=== PATIENT | female | born 1950 | race Caucasian/White ===

== ENCOUNTER → 2023-04-22 07:57 | Outpatient (CLI) | payer MEDICARE, SELFPAY ==
--- NOTE | 2023-04-22 08:01 | DI.RAD.S_ITS ---
PROCEDURE: XR LUMBAR SPINE MIN 4V INDICATIONS: LOW BACK PAIN TECHNIQUE: 5 views of the lumbar spine were acquired, including bilateral oblique views. COMPARISON: None. FINDINGS: Bones: 5 nonrib-bearing vertebrae are present. There is 16.8 degree levoscoliosis with the apex at L4. . No vertebral body compression fractures. No suspicious bony lesions. Degenerative disc disease, moderate at L1-L2, L2-L3 and L3-L4, mild at other levels. Multilevel facet arthropathy, severe at L2-L3, L3-L4 and L4-L5 on the right. Soft tissues: Overlying bowel gas pattern is normal. No suspicious soft tissue calcifications. Cholecystectomy. Oblique images: No pars defects. IMPRESSION: 1. 16.8 degree levoscoliosis with the apex at L4. 2. Multilevel spondylitis as described. Dictated by: Liliana Valdes M.D. on 04/22/2023 at 12:10 Approved by: Liliana Valdes M.D. on 04/22/2023 at 12:14
== END ==
PROVIDERS: Referring Provider Anesthesiology; Visit Provider Anesthesiology
DX: M46.86 Other specified inflammatory spondylopathies, lumbar region (principal); M47.26 Other spondylosis with radiculopathy, lumbar region; M41.25 Other idiopathic scoliosis, thoracolumbar region; M54.9 Dorsalgia, unspecified; M54.50 Low back pain, unspecified
CPT/HCPCS: 72110; 99214

== ENCOUNTER → 2023-04-30 11:14 | Outpatient (CLI) | payer MEDICARE, SELFPAY ==
--- NOTE | 2023-04-30 11:15 | DI.MRI.S_ITS ---
PROCEDURE: MR LUMBAR SPINE WO CON INDICATIONS: Lumbar radiculopathy, transitional anatomy TECHNIQUE: Noncontrast sagittal T1 spin echo and T2 fast echo, sagittal STIR, and T2 fast spin echo through the lumbar spine. In cases with scoliosis, additional coronal T2 fast spin echo may be performed. COMPARISON: [facility], CR, XR LUMBAR SPINE MIN 4V, 04/22/2023, 8:06. FINDINGS: Image quality: Excellent. Alignment and Curvature: Levocurvature centered at L4-L5, dextrocurvature centered at L1. 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 For the purposes of this report, axial imaging is described as having begun at T12 and extended inferiorly. Trace retrolisthesis of L3 on L4. Bone Marrow: Marrow is of normal overall signal. No acute vertebral body compression fractures. Spinal Cord: Conus medullaris terminates at the L2 level. Visualized cord demonstrates normal signal and size. Paraspinous Soft Tissues: No paravertebral masses. T12-L1: No canal stenosis or foraminal stenosis. L1-L2: No canal stenosis or foraminal stenosis. L2-L3: Minimal disc bulge. Minimal facet hypertrophy. No canal stenosis or foraminal stenosis. L3-L4: Trace retrolisthesis of L3 on L4. Facet hypertrophy. Moderate canal stenosis. Tglk-ic-sudpkmuo bilateral foraminal stenosis. L4-L5: Disc bulge. Prominent facet hypertrophy. Moderate canal stenosis. No significant foraminal stenosis. L5-S1: Disc bulge. Facet hypertrophy. No canal stenosis. Moderate right foraminal stenosis with flattening deformity on the exiting right L5 nerve root. IMPRESSION: 1. 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 If surgery is planned in this patient, careful correlation for correct surgical level is required. 2. Scoliotic curvature is described above. 3. Multilevel underlying facet arthropathy. 4. Using the numbering system described above, there is moderate canal stenosis at L3-L4 and L4-L5. 5. Multilevel foraminal narrowing as described above, including moderate right foraminal narrowing at L5-S1. Dictated by: Javid Collins M.D. on 04/30/2023 at 14:29 Approved by: Javid Collins M.D. on 04/30/2023 at 14:45
== END ==
PROVIDERS: Referring Provider Anesthesiology; Visit Provider Anesthesiology
DX: M47.27 Other spondylosis with radiculopathy, lumbosacral region; M48.061 Spinal stenosis, lumbar region without neurogenic claudication; M47.26 Other spondylosis with radiculopathy, lumbar region; M48.07 Spinal stenosis, lumbosacral region; M54.9 Dorsalgia, unspecified; M41.9 Scoliosis, unspecified
CPT/HCPCS: 72148

== ENCOUNTER → 2023-05-04 13:12 | Outpatient (CLI) | payer MEDICARE, SELFPAY ==
--- NOTE | 2023-05-04 13:14 | DI.RAD.S_ITS ---
PROCEDURE: XR KNEE RT 3V INDICATIONS: Right knee pain s/p fall TECHNIQUE: 3 views of the knee were acquired. COMPARISON: None. FINDINGS: Bones: No fractures or dislocations. No suspicious bony lesions. Mild tricompartmental osteoarthritis. Soft tissues: No joint effusion. No suspicious soft tissue calcifications. IMPRESSION: No fracture. No acute osseous lesion. If symptoms and/or clinical suspicion for pathology persists, further assessment with repeat radiographs (7-10 days) or advanced imaging (e.g. CT, MRI or bone scan) should be considered. Dictated by: Katarzyna Holloway MD, PhD on 05/04/2023 at 13:53 Approved by: Katarzyna Holloway MD, PhD on 05/04/2023 at 13:54
== END ==
PROVIDERS: Referring Provider Anesthesiology; Visit Provider Anesthesiology
DX: M25.561 Pain in right knee (principal)
CPT/HCPCS: 73562

== ENCOUNTER 2023-05-12 10:27 | Outpatient (CLI) | payer MEDICARE, SELFPAY ==
[2023-05-12] VITALS (10 sets, daily range): BP systolic 101–131; BP diastolic 52–69; PULSE 58–73; RESP 12–20; TEMP 36.5; O2SAT 96–100
--- NOTE | 2023-05-12 10:30 | DI.RAD.S_ITS ---
PROCEDURE: PAIN L/S TRANSFORAMINAL INJECT INDICATIONS: Right L4-5 and L5-S1 TFESI COMPARISON: [facility], MR, MR LUMBAR SPINE WO CON, 04/30/2023, 11:24. FINDINGS: Fluoroscopic spot filming was performed to verify placement of spinal needles on both sides at the L4-L5 and L5-S1 levels, as labeled on the films. Appropriate location of the needle tips was confirmed by injection of iodinated contrast. IMPRESSION: Intraprocedural examination demonstrating appropriate positions of the needles. Dictated by: Bob Hoffmann M.D. on 05/12/2023 at 15:09 Approved by: Bob Hoffmann M.D. on 05/12/2023 at 15:09
[2023-05-12] MEDS: MIDAZOLAM 2 MG/2 ML VIAL 1 MG IV ×2 (11:29→11:33)
[2023-05-12] MEDS: DEXAMETHASONE 10 MG/ML VIAL 20 MG INJ (11:31)
[2023-05-12] MEDS: iopamidoL 15 ML VIAL 3 ML INJ (11:31)
--- NOTE | 2023-05-12 12:24 | P.PCN_ITS ---
Date/Time/Diagnoses Date of procedure: 05/12/23 Time of procedure: 11:00 Procedure Notes Physician: Chip Ramon Total Fluoroscopy time (seconds): 37 Total sedation minutes: 15 Procedure in detail & Post-procedure care: Right L4-5 Transforaminal Epidural Steroid Injection Indications: Jodi is presenting for treatment of lumbar radiculopathy with low back and leg pain. Preoperative diagnosis: Lumbar radiculopathy Postoperative diagnosis: Same Focused Examination: Ax3 Mood and affect are normal Vital Signs: VSS ASA: 2 Consent: Following review of allergies and potential side effects/complications, including, but not necessarily limited to, infection, allergic reaction, local tissue breakdown, stroke, temporary or permanent nerve injury, paralysis, and possible , the patient indicated that they understood and agreed to proceed.? An informed consent document was signed by the patient, witnessed by a nurse and placed in the patient's chart.? Additionally, other treatment options including medications and physical therapy were reviewed with the patient. All questions were answered. Site was then marked. Anesthesia: After review of previous anesthetic history and IV conscious sedati on, the patient was deemed safe to proceed with today's procedure with IV conscious sedation. IV sedation was accomplished with midazolam 2 mg administered by the RN after order by Dr. Ramon. Sedation was titrated to patient comfort during the course of the procedure. Patient remained responsive to all verbal commands. Position: Prone Monitoring: NIBP, Pulse oximetry, 3 lead EKG Needle used: 22G 5 inch spinal needle Contrast: Isovue 300M Injectate: 10 mg Dexamethasone mixed with 1% lidocaine 1 ml and normal saline 1 mL Technique: The skin was prepped with chloraprep and draped in a sterile fashion. Time out was performed as per protocol. Oxygen applied via NC. Skin and subcutaneous structures of the needle entry site were infiltrated with 3mL of lidocaine 1%. Under fluoroscopic guidance, using an ipsilateral oblique view,?a 22 gauge 5 inch needle was advanced to the base of the right L4?pedicle.? The needle was advanced to the superio-posterior aspect of the neural foramen under lateral view.? Oblique and AP views were rechecked. No paresthesias noted by the patient during needle placement. In AP view and utilizing real-time digital subtraction fluoroscopy, 2 ml contrast was slowly injected. Epidural spread was observed without evidence for intravascular nor intrathecal uptake. Contrast spread was seen craniocaudally. The above injectate was then administered without paresthesia, and the needle was subsequently withdrawn. Skin and subcutaneous structures of the needle entry site were infiltrated with 3mL of lidocaine 1%. Under fluoroscopic guidance, using an ipsilateral oblique view,?a 22 gauge 5 inch needle was advanced to the base of the right L5? pedicle.? The needle was advanced to the superio-posterior aspect of the neural foramen under lateral view.? Oblique and AP views were rechecked. Paresthesia of the right lower extremity noted with injection at the L5-S1 level. Needle adjusted slightly however paresthesia continued. Injection at this level was aborted and needle was removed. A total of 0.25 cc of dexamethasone with lidocaine was injected at this level. Band-Aids applied to injection sites. EBL: less than 1 ml Complications: None Post Procedure: Patient was taken to the recovery and monitored. The patient was provided a Pain Log to continue to record the patient's response to the target- specific procedure prior to the patient's follow-up visit with the referring physician. Patient was stable upon discharge. Detailed post procedure instruc tions were provided. Patient was asked to call in the event of worsening pain, fever, weakness, numbness or bladder or bowel incontinence.
== END 2023-05-12 12:13 | disposition home or self-care (01) ==
LOC: RAD 10:28
PROVIDERS: Referring Provider Anesthesiology; Visit Provider Anesthesiology
DX: M54.16 Radiculopathy, lumbar region (principal)
CPT/HCPCS: 64483; 99152; J1100; J2250

== ENCOUNTER → 2023-06-15 14:47 | Outpatient (CLI) | payer MEDICARE, SELFPAY ==
[2023-06-15 17:54] LABS: Add Manual Diff / Slide Review NO; Basophils Absolute Auto 0 /uL (0-100); Basophils Percent Auto 0.7 % (0-2); Eosinophils Absolute Auto 200 /uL (0-450); Eosinophils Percent Auto 2.6 % (2-4); Hematocrit 37.4 % (36-46); Hemoglobin 12.9 g/dL (12.0-16.0); Lymphocytes Absolute Auto 1900 /uL (1100-4500); Lymphocytes Percent Auto 32.1 % (25-40); Mean Corpuscular HGB Conc 34.6 % (30-36); Mean Corpuscular Hemoglobin 32.3 PG (26-34); Mean Corpuscular Volume 93.3 fL (80-100); Monocytes Absolute Auto 800 /uL (0-900); Monocytes Percent Auto 12.6 % (3-14); Neutrophils Absolute Auto 3200 /uL (1500-7000); Platelet Count 205 X10^3/uL (150-400); Red Blood Cell Count 4.01 X10^6/uL (4.0-5.2); Red Cell Distribution Width 12.7 % (11.6-14.8); White Blood Cell Count 6.1 X10^3/uL (4.5-11.0)
[2023-06-15 18:05] LABS: Alanine Aminotransferase 21 IU/L (<35); Albumin 3.8 g/dL (3.5-5.0); Albumin Globulin Ratio 1.2 (1.0-2.8); Alkaline Phosphatase 67 U/L (38-126); Aspartate Aminotransferase 31 IU/L (14-36); BUN Creatinine Ratio 17.2 (6-22); Bilirubin Total 0.4 mg/dL (0.2-1.3); Blood Urea Nitrogen 16 mg/dL (7-17); Calcium 9.9 mg/dL (8.4-10.2); Carbon Dioxide 23 mmol/L (22-32); Chloride 106 mmol/L (98-107); Estimated Glomerular Filt Rate > 60 mL/min (>60); Globulin 3.1 g/dL (1.7-4.1); Glucose 100 mg/dL (80-110); HEMOLYSIS < 15 (0-50); Potassium 4.2 mmol/L (3.4-5.1); Sodium 139 mmol/L (137-145); Total Protein 6.9 g/dL (6.3-8.2)
[2023-06-15 18:35] LABS: TSH w/ Reflex to FT4 0.14 uIU/mL (0.47-4.68)
[2023-06-15 18:48] LABS: Erythrocyte Sedimentation Rate 15 MM/HR (0-20)
== END ==
PROVIDERS: PCP Student in an Organized Health Care Education/Training Program; Referring Provider Student in an Organized Health Care Education/Training Program; Visit Provider Student in an Organized Health Care Education/Training Program
DX: R19.7 Diarrhea, unspecified (principal); Z13.29 Encounter for screening for other suspected endocrine disorder
CPT/HCPCS: 36415; 80053; 84439; 84443; 85025; 85651

== ENCOUNTER → 2023-06-16 10:55 | Outpatient (CLI) | payer MEDICARE, SELFPAY ==
[2023-06-16 17:17] LABS: Occult Blood 1 Negative (Negative); Occult Blood 2 Negative (Negative); Occult Blood 3 Negative (Negative)
[2023-06-21 09:18] LABS: Calprotectin, Stool 16 ug/g (0-120)
== END ==
PROVIDERS: PCP Student in an Organized Health Care Education/Training Program; Referring Provider Student in an Organized Health Care Education/Training Program; Visit Provider Student in an Organized Health Care Education/Training Program
DX: R19.7 Diarrhea, unspecified (principal)
CPT/HCPCS: 82270; 83993

== ENCOUNTER → 2023-07-26 09:42 | Outpatient (CLI) | payer MEDICARE, SELFPAY ==
[2023-07-26 11:33] LABS: TSH w/ Reflex to FT4 0.18 uIU/mL (0.47-4.68)
[2023-07-26 20:55] LABS: Free T4, Direct Thyroxine 1.23 ng/dL (0.78-2.19)
== END ==
PROVIDERS: Family Provider Student in an Organized Health Care Education/Training Program; PCP Student in an Organized Health Care Education/Training Program; Referring Provider Student in an Organized Health Care Education/Training Program; Visit Provider Student in an Organized Health Care Education/Training Program
DX: E03.9 Hypothyroidism, unspecified (principal)
CPT/HCPCS: 36415; 84439; 84443

== ENCOUNTER → 2023-09-09 14:17 | Outpatient (CLI) | payer MEDICARE, SELFPAY ==
[2023-09-09 15:47] LABS: Thyroid Stimulating Hormone 0.081 uIU/mL (0.47-4.68)
== END ==
PROVIDERS: Family Provider Student in an Organized Health Care Education/Training Program; PCP Student in an Organized Health Care Education/Training Program; Referring Provider Student in an Organized Health Care Education/Training Program; Visit Provider Student in an Organized Health Care Education/Training Program
DX: E03.9 Hypothyroidism, unspecified (principal)
CPT/HCPCS: 36415; 84443

== ENCOUNTER → 2023-10-30 11:33 | Outpatient (CLI) | payer MEDICARE, SELFPAY ==
[2023-10-30 12:44] LABS: Add Manual Diff / Slide Review NO; Basophils Absolute Auto 100 /uL (0-100); Basophils Percent Auto 0.7 % (0-2); Eosinophils Absolute Auto 200 /uL (0-450); Eosinophils Percent Auto 3.1 % (2-4); Hematocrit 36.5 % (36-46); Hemoglobin 12.7 g/dL (12.0-16.0); Lymphocytes Absolute Auto 2200 /uL (1100-4500); Lymphocytes Percent Auto 29.8 % (25-40); Mean Corpuscular HGB Conc 34.9 % (30-36); Mean Corpuscular Hemoglobin 32.8 PG (26-34); Mean Corpuscular Volume 93.9 fL (80-100); Monocytes Absolute Auto 800 /uL (0-900); Monocytes Percent Auto 10.8 % (3-14); Neutrophils Absolute Auto 4100 /uL (1500-7000); Neutrophils Percent Auto 55.6 % (50-75); Platelet Count 190 X10^3/uL (150-400); Red Blood Cell Count 3.88 X10^6/uL (4.0-5.2); Red Cell Distribution Width 12.8 % (11.6-14.8); White Blood Cell Count 7.4 X10^3/uL (4.5-11.0)
[2023-10-30 13:06] LABS: Alanine Aminotransferase 18 IU/L (<35); Albumin 3.6 g/dL (3.5-5.0); Albumin Globulin Ratio 1.2 (1.0-2.8); Alkaline Phosphatase 87 U/L (38-126); Aspartate Aminotransferase 26 IU/L (14-36); BUN Creatinine Ratio 33.8 (6-22); Bilirubin Total 0.5 mg/dL (0.2-1.3); Blood Urea Nitrogen 27 mg/dL (7-17); Calcium 9.6 mg/dL (8.4-10.2); Carbon Dioxide 24 mmol/L (22-32); Chloride 110 mmol/L (98-107); Estimated Glomerular Filt Rate > 60 mL/min (>60); Glucose 86 mg/dL (80-110); HEMOLYSIS < 15 (0-50); Potassium 4.9 mmol/L (3.4-5.1); Sodium 138 mmol/L (137-145); Total Protein 6.6 g/dL (6.3-8.2)
== END ==
LOC: LAB 11:34
PROVIDERS: Family Provider Student in an Organized Health Care Education/Training Program; PCP Student in an Organized Health Care Education/Training Program; Referring Provider Family Medicine; Visit Provider Family Medicine
DX: E78.5 Hyperlipidemia, unspecified (principal); E03.9 Hypothyroidism, unspecified
CPT/HCPCS: 36415; 80053; 85025

== ENCOUNTER → 2023-11-23 15:46 | Outpatient (CLI) | payer MEDICARE, SELFPAY ==
--- NOTE | 2023-11-23 15:47 | DI.US.S_ITS ---
PROCEDURE: US THYROID INDICATIONS: HYPOTHYROIDISM TECHNIQUE: Real-time scanning was performed of the thyroid gland, with image documentation. COMPARISON: None. FINDINGS: Thyroid: Right lobe measures 4 3.9 x 0.8 x 1.1 cm. Left lobe measures 4.5 x 1.1 x 0.9 cm. Isthmus is 0.2 cm thick. Echotexture is mildly heterogeneous. No discrete thyroid nodule. Normal vascularity. IMPRESSION: Thyroid echotexture is mildly heterogeneous with no discrete nodule. Normal vascularity. Dictated by: Javier Rios M.D. on 11/24/2023 at 15:39 Approved by: Javier Rios M.D. on 11/24/2023 at 15:41
== END ==
PROVIDERS: Family Provider Student in an Organized Health Care Education/Training Program; PCP Student in an Organized Health Care Education/Training Program; Referring Provider Family Medicine; Visit Provider Family Medicine
DX: K31.7 Polyp of stomach and duodenum (principal); K44.9 Diaphragmatic hernia without obstruction or gangrene; E04.1 Nontoxic single thyroid nodule; K21.9 Gastro-esophageal reflux disease without esophagitis; E03.9 Hypothyroidism, unspecified
CPT/HCPCS: 76536

== ENCOUNTER 2023-12-16 14:30 | Outpatient (RCR) | payer MEDICARE, SELFPAY ==
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
--- NOTE | 2023-08-17 16:16 | PT.OPPOC ---
Physical, Occupational & Speech Therapy At [facility] Current Diagnoses Other chronic pain (08/17/23) Low back pain, unspecified (08/17/23) Visit Care Team Role Provider Type Annabelle Mancini MD Family Provider Physician Primary Care Provider Specialty: Family Practice Obstetrics Address: [address] [place], [address] Email: [email or web address] Chip Ramon MD Attending Provider Physician Referring Provider Specialty: Anesthesiology Interventional Radiology Pain Management Address: [address] [place], [address] Email: [email or web address] Plan Of Care PT-OP-T Assessment and Plan Start: 08/17/23 13:01 Freq: Status: Active Protocol: Document 08/17/23 13:01 NM (Rec: 08/17/23 13:53 NM [id number]) Physical Therapy Assessment Rehab Potential Rehabilitation Potential Fair Evaluation Complexity Number of Personal Factors/Comorbidities 3 or More Number of Body Systems Impaired 1-2 Clinical Presentation at Evaluation Stable Impairments Impairments Activity Tolerance,Balance, Coordination,Functional Activities,Functional Mobility ,Gait,Pain,Posture,ROM, Sensation,Soft Tissue Mobility ,Strength Goals Six Impairment ROM Impairment Fwd trunk flex test 9 from floor Casework Specialist Goal (LTG) Pt will improve fwd trunk flex to less than 9 from floor in order to demonstrate improved trunk flexion with activity. LTG Duration 10 weeks Five Impairment strength Impairment trunk flex/ext strength 3/5, lateral flex/rotation strength 4-/5 Casework Specialist Goal (LTG) Pt will improve global trunk strength by at least 1 grade in order to demonstrate increased strength required for ADLs. LTG Duration 10 weeks Four Impairment strength Casework Specialist Goal (LTG) Pt will improve BLE global hip /knee strength to at least 4/5 in order to increase strength for activity tolerance. LTG Duration 10 weeks Three Impairment strength Impairment 5x STS 23.63 seconds Short Term Goal (STG) Pt will decrease 5x STS time to less than 20 seconds to demonstrate increased BLE strength and activity tolerance. Casework Specialist Goal (LTG) Pt will decrease 5x STS time to less than 17 seconds to demonstrate increased BLE strength and activity tolerance. LTG Duration 10 weeks Two Impairment balance Impairment Tinetti 17/28 Short Term Goal (STG) Pt will improve Tinetti score to at least 20/28 in order to demonstrate improved balance during gait and ADLs. STG Duration 5 weeks Fpc Goal (LTG) Pt will improve Tinetti score to at least 24/28 in order to demonstrate improved balance during gait and ADLs. LTG Duration 10 weeks One Impairment function Impairment Oswestry 28/50 Casework Specialist Goal (LTG) Pt will decrease Oswestry score by at least 12 points (1 MCID) in order to demonstrate improved ADL and activity tolerance. LTG Duration 10 weeks Assessment Summary Assessment Pt is a 73 y.o. female presenting with low back pain with R radicular symptoms. Radicular symptoms wrap from posterior glute to anterior thigh and end at knee. Pt has decreased trunk global ROM and strength, particularly with flexion. Resisted muscle testing is painful for rotation and lateral flexion. Also demonstrates decreased B hip and knee strength. Pt has hx of L scoliosis at L4, which likely plays a large role in her pain. Pt is a fall risk with a Tinetti score of 17/28, which coincides with her reports of changes in gait and balance. She also has positive neural tension tests for sciatic and femoral nerves , along with Bauman/Quadrant compression and B FADIR tests. Tender to palpation at paraspinals, L4-S1 and B SI joints. She has very limited activity tolerance, which affects her ability to perform ADLs. Pt would benefit from skilled PT for BLE and trunk strengthening, mobility, gait and balance training in order to decrease fall risk, decrease pain symptoms, and improve activity tolerance. Physical Therapy Plan Frequency and Duration Frequency of Treatment 2x/Week Duration of treatment (weeks) 10 Plan of Care Start Date 08/17/23 Plan of Care End Date 10/29/23 Therapeutic Interventions Therapeutic Interventions Balance Training,Coordination Training,Gait Training,Home Exercise Program,Joint Mobilizations,Manual Therapy, Neuromuscular Re-education, Orthotic/Prosthetic Management ,Patient/Caregiver Education, Self-Care/Home Management, Sensory Integration,Soft Tissue Mobilization,Taping, Therapeutic Activities, Therapeutic Exercises Modalities Biofeedback,Cold Pack/Ice Massage,Electric Stimulation, Hot Packs,Infrared Therapy, Traction- Mechanical, Ultrasound,Vasopneumatic Devices Next Visit Focus/Plan Next Note Type Treatment Note Next Visit Plan flexion biased strengthening, TA activation. LTR, BTFO, distraction + traction. Hip abd and ext strengthening table exercises; trial femoral n and sciatic n glides Pain neuroscience education Plan of Care Dates Plan of Care Start Date 08/17/23 Plan of Care End Date 10/29/23 Electronically Signed by: Josiane Landeros, PT 08/25/23 [id number] If you are in agreement with this Plan of Care, please return a signed and dated copy. I have reviewed this Plan of Care and certify that the skilled therapy services above are required to meet the patient?s needs. Physician Signature Date Printed Name and Credentials Clinical Instructor Signature Printed Name and Credentials
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
--- NOTE | 2023-10-29 16:46 | PT.OPPOC ---
Physical, Occupational & Speech Therapy At [facility] Current Diagnoses Other chronic pain (10/29/23) Low back pain, unspecified (10/29/23) Visit Care Team Role Provider Type Johnny Rico MD Other Providers Physician Specialty: Family Practice Address: [address] [place] [address] Email: [email or web address] Annabelle Mancini MD Family Provider Physician Primary Care Provider Specialty: Family Practice Obstetrics Address: [address] [place] [address], [id number] Email: [email or web address] Chip Ramon MD Attending Provider Physician Referring Provider Specialty: Anesthesiology Interventional Radiology Pain Management Address: [address] [place] [address], [id number] Email: [email or web address] Plan Of Care PT-OP-T Assessment and Plan Start: 08/17/23 13:01 Freq: Status: Active Protocol: Document 10/29/23 09:01 NM (Rec: 10/29/23 09:46 NM [id number]) Physical Therapy Assessment Goals Six Impairment ROM Impairment Fwd trunk flex test 9 from floor Snf Goal (LTG) Pt will improve fwd trunk flex to less than 9 from floor in order to demonstrate improved trunk flexion with activity. 10/19/23: added trunk flexion / c 65cm tball home carryover into progression ROM. 10/29/23: 50% flexion AROM LTG Duration 10 weeks progression 10/19/23 Five Impairment strength Impairment trunk flex/ext strength 3/5, lateral flex/rotation strength 4-/5 Snf Goal (LTG) Pt will improve global trunk strength by at least 1 grade in order to demonstrate increased strength required for ADLs. 10/01/23: added TA hooklying, sidelying, STS, juanita stretch . 10/19/23: added LTR tball and seated lumbar flexion tball with pain reduction. 10/29/23: 4-/5 against resistance in sitting, cued for core stabilization LTG Duration 10 weeks progressing 10/19/23 Four Impairment strength Snf Goal (LTG) Pt will improve BLE global hip /knee strength to at least 4/5 in order to increase strength for activity tolerance. 10/29/23-MET: 4/5 MMT global BLE strength LTG Duration 10 weeks MET Three Impairment strength Impairment 5x STS 23.63 seconds Short Term Goal (STG) Pt will decrease 5x STS time to less than 20 seconds to demonstrate increased BLE strength and activity tolerance. 10/07/23 Pt completes 10 reps STS, not timed today, no UEs support with good TAfac. 10/21/23: 5TSTS in 40 secs with use of hands and no increase in back pain. Mvmt limited by RLBP/hip pain, not by LE strength. 10/29/23-NOT MET: 33.6 seconds, with hand use; no back pain reported during sit to stand but reports pain after finishing 5x STS STG Duration 5 weeks Snf Goal (LTG) Pt will decrease 5x STS time to less than 17 seconds to demonstrate increased BLE strength and activity tolerance. 10/29/23-NOT MET: 33.6 seconds, with hand use; no back pain reported during sit to stand but reports pain after finishing 5x STS LTG Duration 10 weeks Two Impairment balance Impairment Tinetti Short Term Goal (STG) Pt will improve Tinetti score to at least 20/28 in order to demonstrate improved balance during gait and ADLs. STG Duration 5 weeks Super[employer] Goal (LTG) Pt will improve Tinetti score to at least 24/28 in order to demonstrate improved balance during gait and ADLs. 10/29/23: 24 LTG Duration 10 weeks MET One Impairment function Impairment Oswestry Super[employer] Goal (LTG) Pt will decrease Oswestry score by at least 12 points (1 MCID) in order to demonstrate improved ADL and activity tolerance. 10/29/23-NOT MET: LTG Duration 10 weeks Progress Towards Goals Progress Towards Goals Progressing Toward Goals,Slow Progress due to Activity Tolerance,Goals Met Assessment Summary Assessment Pt has been seen 8 times since IE in August 2023 for low back pain. Pt reports improvements in BLE strength since beginning PT. Pt's MMT scores demonstrate improvement , no 4/5 MMT. Pt continues to make progressions with 5x STS, but is below age/gender norms (12.6 sec); pt demos improvements in mechanics rather than speed. She is progressing with trunk ROM, but her pain is easily flared which limits progression. Pt has met Tinetti goals, indicating improved balance and decreased fall risk. She continues to have limitations in ability to participate in ADLs/IADLs without pain. Pt would benefit from further skilled PT to body mechanics training, pain neuroscience education, and to improve trunk stabilization in order to improve QOL and activity tolerance. Physical Therapy Plan Frequency and Duration Frequency of Treatment 2x/Week Duration of treatment (weeks) 10 Plan of Care Start Date 10/29/23 Plan of Care End Date 01/07/24 Therapeutic Interventions Therapeutic Interventions Balance Training,Coordination Training,Gait Training,Home Exercise Program,Joint Mobilizations,Manual Therapy, Neuromuscular Re-education, Orthotic/Prosthetic Management ,Patient/Caregiver Education, Self-Care/Home Management, Sensory Integration,Soft Tissue Mobilization,Taping, Therapeutic Activities, Therapeutic Exercises Modalities Biofeedback,Cold Pack/Ice Massage,Electric Stimulation, Hot Packs,Infrared Therapy, Traction- Mechanical, Ultrasound,Vasopneumatic Devices Next Visit Focus/Plan Next Note Type Treatment Note Next Visit Plan Next: Use L/S traction when needed to keep R LBP down. Assess tolerance before adding LTR w/TA. Might try adding Shuttle Recovery or Knee Ext/ Flex PRE strengthening if no increase in RLBP/hip pain. Assess tinetti and progress towards functional squat (goal #4), bodymechanics to return to house activities. POC: Try strengthen convex side of curves, 90/90 distraction + traction for pain and if sup tolerated, try BKFO (might try also in sitting). POC: progress Core stab/TA tightening and response ex/ training. Scoliosis ex's. Cont: Flexion biased strengthening, TA activation. Hip abd and ext strengthening table exercises; if tolerated : Obturator stretch to decrease nerve symptoms. Pain neuroscience education Plan of Care Dates Plan of Care Start Date 10/29/23 Plan of Care End Date 01/07/24 Electronically Signed by: Josiane Landeros, PT 10/29/23 2530 If you are in agreement with this Plan of Care, please return a signed and dated copy. I have reviewed this Plan of Care and certify that the skilled therapy services above are required to meet the patient?s needs. Physician Signature Date Printed Name and Credentials Clinical Instructor Signature Printed Name and Credentials
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
== END 2023-12-22 12:24 | disposition home or self-care (01) ==
LOC: PHYS 14:30
PROVIDERS: Family Provider Student in an Organized Health Care Education/Training Program; PCP Student in an Organized Health Care Education/Training Program; Referring Provider Anesthesiology; Visit Provider Anesthesiology
DX: M54.50 Low back pain, unspecified (principal); G89.29 Other chronic pain
CPT/HCPCS: 97110; 97140; 97162; 97530; 97535

== ENCOUNTER → 2023-12-29 08:40 | Outpatient (CLI) | payer MEDICARE, SELFPAY | PROVIDERS: Family Provider Student in an Organized Health Care Education/Training Program; PCP Student in an Organized Health Care Education/Training Program; Visit Provider Physician Assistant Surgical | DX: R30.0 Dysuria (principal) | CPT/HCPCS: 87077; 87086; 87186 ==

== ENCOUNTER → 2024-01-15 20:10 | Outpatient (ROUT) | payer MEDICARE, SELFPAY | PROVIDERS: Family Provider Student in an Organized Health Care Education/Training Program; PCP Student in an Organized Health Care Education/Training Program; Visit Provider Nurse Practitioner Family | DX: R30.0 Dysuria (principal) | CPT/HCPCS: 87086 ==

== ENCOUNTER → 2024-01-20 09:00 | Outpatient (CLI) | payer MEDICARE, SELFPAY ==
[2024-01-20 10:52] LABS: Appearance Urine UA CLEAR; Bilirubin Urine UA NEGATIVE (NEGATIVE); Color Urine UA YELLOW; Glucose Urine UA NEGATIVE (Negative); Ketones Urine UA NEGATIVE (NEGATIVE); Leukocyte Esterase Urine UA NEGATIVE (NEGATIVE); Nitrite Urine UA NEGATIVE (Negative); Occult Blood Urine UA NEGATIVE (Negative); Protein Urine UA NEGATIVE (Negative); Specific Gravity Urine UA 1.015 (1.000-1.035); Urobilinogen Urine UA 0.2 E.U./dL (0.2)
[2024-01-20 11:16] LABS: Bacteria Urine None Seen; Culture Indicated Urine Cult Not Indicated; RBC Urine None Seen (0-5/HPF); Squamous Epithelial Cell Urine 1-5 /HPF (0-5/HPF); Urine Volume 10mL (spun); WBC Urine 0-1/HPF (0-5/HPF)
== END ==
PROVIDERS: Family Provider Student in an Organized Health Care Education/Training Program; PCP Student in an Organized Health Care Education/Training Program; Visit Provider Student in an Organized Health Care Education/Training Program
DX: N39.0 Urinary tract infection, site not specified (principal)
CPT/HCPCS: 81001; 87086

== ENCOUNTER → 2024-04-13 14:45 | Outpatient (CLI) | payer MEDICARE, SELFPAY ==
[2024-04-13 17:04] LABS: Appearance Urine UA CLEAR; Bilirubin Urine UA NEGATIVE (NEGATIVE); Color Urine UA YELLOW; Glucose Urine UA NEGATIVE (Negative); Ketones Urine UA NEGATIVE (NEGATIVE); Leukocyte Esterase Urine UA NEGATIVE (NEGATIVE); Nitrite Urine UA NEGATIVE (Negative); Occult Blood Urine UA NEGATIVE (Negative); Protein Urine UA NEGATIVE (Negative); Urobilinogen Urine UA 0.2 E.U./dL (0.2)
[2024-04-13 17:11] LABS: Bacteria Urine Occasional (0-1); Calcium Oxalate Crystals Urine Moderate; RBC Urine 0-1/HPF (0-5/HPF); Squamous Epithelial Cell Urine 0-1 /HPF (0-5/HPF); Urine Volume 10mL (spun); WBC Urine 1-5/HPF (0-5/HPF)
[2024-04-13 17:12] LABS: Culture Indicated Urine Cult Not Indicated
== END ==
PROVIDERS: Family Provider Student in an Organized Health Care Education/Training Program; PCP Student in an Organized Health Care Education/Training Program; Visit Provider Student in an Organized Health Care Education/Training Program
DX: R32 Unspecified urinary incontinence (principal)
CPT/HCPCS: 81001

== ENCOUNTER → 2024-05-08 10:33 | Outpatient (CLI) | payer MEDICARE, SELFPAY ==
--- NOTE | 2024-05-08 10:34 | DI.US.S_ITS ---
PROCEDURE: US PERIPH VENOUS LOW EXTREM RT INDICATIONS: POSTERIOR KNEE PAIN TECHNIQUE: Real-time imaging, as well as color and pulse Doppler interrogation, were performed of the lower extremity deep veins from the inguinal ligament to the popliteal fossa, with documentation of the visualized calf veins. COMPARISON: None. FINDINGS: The common femoral, femoral, popliteal, and the visualized calf veins are normally compressible, and free of intraluminal thrombus. Color and pulse Doppler demonstrate normal phasic intraluminal flow. There is normal augmentation response to distal compression maneuver. A Montano's cyst is noted measuring 5.2 x 1.8 x 3.2 cm, without abnormal vascularity. IMPRESSION: No findings of lower extremity deep venous thrombosis. Montano's cyst noted. Dictated by: Bob Hoffmann M.D. on 05/08/2024 at 10:02 Approved by: Bob Hoffmann M.D. on 05/08/2024 at 10:03
== END ==
PROVIDERS: Family Provider Student in an Organized Health Care Education/Training Program; PCP Student in an Organized Health Care Education/Training Program; Referring Provider Family Medicine; Visit Provider Family Medicine
DX: M79.604 Pain in right leg (principal); M79.89 Other specified soft tissue disorders; M71.21 Synovial cyst of popliteal space [Baker], right knee
CPT/HCPCS: 93971

== ENCOUNTER → 2024-10-16 11:12 | Outpatient (CLI) | payer MEDICARE, SELFPAY ==
--- NOTE | 2024-10-16 11:13 | DI.RAD.S_ITS ---
PROCEDURE: XR HIP W PEL IF DONE LT 2V INDICATIONS: left hip pain TECHNIQUE: AP pelvis and frogleg left hip views were acquired. COMPARISON: None. FINDINGS: Bones: There are no osseous abnormalities. SI and hip joints: Moderate right hip and mild left hip and bilateral SI degeneration noted. Moderate L5-S1 degenerative disc and right facet disease. Soft tissues: No soft tissue swelling, calcification or mass. IMPRESSION: Degeneration Dictated by: Saturnino Velasquez M.D. on 10/17/2024 at 9:23 Approved by: Saturnino Velasquez M.D. on 10/17/2024 at 9:24
== END ==
PROVIDERS: Family Provider Student in an Organized Health Care Education/Training Program; PCP Student in an Organized Health Care Education/Training Program; Referring Provider Family Medicine; Visit Provider Family Medicine
DX: M16.0 Bilateral primary osteoarthritis of hip (principal); M47.817 Spondylosis without myelopathy or radiculopathy, lumbosacral region; M47.818 Spondylosis without myelopathy or radiculopathy, sacral and sacrococcygeal region; M25.552 Pain in left hip; M51.379 Other intervertebral disc degeneration, lumbosacral region without mention of lumbar back pain or lower extremity pain
CPT/HCPCS: 73502

== ENCOUNTER → 2024-10-20 15:00 | Outpatient (CLI) | payer MEDICARE, SELFPAY ==
--- NOTE | 2024-10-20 15:02 | DI.MRI.S_ITS ---
PROCEDURE: MR LUMBAR SPINE WO CON INDICATIONS: Incontinence TECHNIQUE: Noncontrast sagittal T1 spin echo and T2 fast echo, sagittal STIR, and T2 fast spin echo through the lumbar spine. In cases with scoliosis, additional coronal T2 fast spin echo may be performed. COMPARISON: [facility], MR, MR LUMBAR SPINE WO CON, 04/30/2023, 11:24. FINDINGS: Image quality: Excellent. Alignment and Curvature: There is rwne-os-ojlkubrk dextroscoliosis of thoracolumbar spine with apex at L2 level and mild compensatory levoscoliosis of lower lumbar spine centered at L4-5 level not significantly changed from previous study. Bone Marrow: There is no marrow edema. No acute vertebral body compression fracture or significant spondylolisthesis. Spinal Cord: Conus medullaris terminates at the L2 level. Visualized cord demonstrates normal signal and size. Paraspinous Soft Tissues: No paravertebral masses. T12-L1: Disc desiccation. No significant disc bulge, canal stenosis or neural foraminal narrowing. L1-L2: Disc desiccation. Mild diffuse disc bulge and bilateral facet arthrosis. No significant central canal stenosis. Mild left-sided neural foraminal narrowing is seen. L2-L3: There is disc desiccation. Diffuse disc bulge and bilateral facet arthrosis with hypertrophy of ligamentum flavum causing mild central canal stenosis and mild left-sided neural foraminal narrowing. L3-L4: Disc desiccation. Diffuse disc bulge and bilateral facet arthrosis with hypertrophy of ligamentum flavum causing moderate central canal stenosis, severe right-sided neural foraminal narrowing and nbux-pt-ubtccjbi left-sided neural foraminal narrowing. Bulging disc likely contacting bilateral L2 nerve roots. L4-L5: Diffuse disc bulge and bilateral facet arthrosis with hypertrophy of ligamentum flavum with mild central canal stenosis and fuko-on-gegqldds bilateral neural foraminal narrowing. Bulging disc likely contacting right L4 nerve root. L5-S1: Loss of disc height and disc desiccation. Broad-based disc bulge and bilateral facet arthrosis with etgy-zo-lkscwpnd central canal stenosis, moderate right-sided neural foraminal narrowing and mild left-sided neural foraminal narrowing. Bulging disc is seen contacting right L5 nerve root. IMPRESSION: 1. Scoliosis of lower thoracic and lumbar spine as above, not significantly changed from prior study. No marrow edema. No acute compression fracture or significant spondylolisthesis. 2. Spondylitic changes throughout lumbar spine causing various degrees of central canal stenosis and bilateral neural foraminal narrowing slightly progressed compared to 2022 study. 3. No gross paraspinous soft tissue abnormalities. Dictated by: Slim España M.D. on 10/20/2024 at 16:32 Approved by: Slim España M.D. on 10/20/2024 at 16:55
--- NOTE | 2024-10-20 15:02 | DI.MRI.S_ITS ---
PROCEDURE: MR HIP LT WO CON INDICATIONS: Incontinence TECHNIQUE: Noncontrast coronal T1 spin echo and STIR through the bony pelvis. Coronal and axial T2 fast spin echo with fat saturation, sagittal T1 spin echo, and oblique axial T2 fast spin echo with fat saturation through the hip. COMPARISON: [facility], CR, XR HIP W PEL IF DONE LT 2V, 10/16/2024, 11:10. FINDINGS: Image quality: Excellent. Bones and joints: Tndh-kz-pfyxwpkd bilateral hip joint osteoarthritic changes are seen with joint space narrowing, subchondral sclerosis and subcortical cystic changes worse on the right side. No intraosseous lesions or fractures. No avascular necrosis of the femoral heads. Degenerative disc disease in visualized lower lumbar spine is seen. Tendons and ligaments: Distal left gluteus medius and minimus tendinosis is seen at their insertions on greater trochanter. Small amount of fluid within left trochanteric bursa is seen. The nearby proximal iliotibial band also appears intact. The iliopsoas tendon appears intact, without adjacent bursal fluid collections or evidence for impingement syndrome. Mild tendinosis involving left hamstring tendon origins at ischial tuberosity. Labrum and cartilage: Diffuse thinning of articulating cartilage. There is fraying of superior anterior left acetabular labrum with T2 hyperintense signal suggestive of left acetabular labral tear. Soft tissues: Visualized muscles demonstrate normal bulk and internal signal. Quadratus femoris muscle demonstrates no internal edema to suggest ischiofemoral impingement. The proximal sciatic neurovascular bundle appears normal adjacent to the hamstring tendons. No free pelvic fluid. Bladder wall thickness is normal. Genitourinary structures and bowel loops appear normal where visualized. IMPRESSION: 1. Right worse than left bilateral nbxs-zs-zbxdwbho hip joint osteoarthritis. No fracture or dislocation. No evidence of avascular necrosis. Degenerative disc disease in visualized lower lumbar spine. 2. Mild distal left gluteus medius and minimus tendinosis. Small amount of fluid within left trochanteric bursa, concerning for low-grade bursitis. Tendinosis also seen involving left hamstring tendon origins at ischial tuberosity. No other muscle or tendon signal abnormalities are seen. 3. Finding is suggestive of superior anterior left acetabular labral tear. Dictated by: Slim España M.D. on 10/20/2024 at 16:26 Approved by: Slim España M.D. on 10/20/2024 at 16:29
--- NOTE | 2024-10-20 15:02 | DI.MRI.S_ITS ---
PROCEDURE: MR HIP RT WO CON INDICATIONS: Incontinence TECHNIQUE: Noncontrast coronal T1 spin echo and STIR through the bony pelvis. Coronal and axial T2 fast spin echo with fat saturation, sagittal T1 spin echo, and oblique axial T2 fast spin echo with fat saturation through the hip. COMPARISON: None. FINDINGS: Image quality: Excellent. Bones and joints: Mfhf-ts-lnxuewuy bilateral hip joint osteoarthritic changes are seen with superior joint space narrowing, subchondral sclerosis and small marginal osteophyte formation. Finding is worse on the right side. No intraosseous lesions or fractures. No avascular necrosis of the femoral heads. degenerative disc disease in visualized lower lumbar spine is seen. Tendons and ligaments: Distal right gluteus medius and minimus tendinosis at their insertions on greater trochanter is seen with trace amount of fluid within right trochanteric bursa. The nearby proximal iliotibial band also appears intact. The iliopsoas tendon appears intact, without adjacent bursal fluid collections or evidence for impingement syndrome. Mild tendinosis involving right hamstring tendon origins at ischial tuberosity is seen with thickening of the tendon. Labrum and cartilage: Diffuse thinning of articulating cartilage over right femoral head. Fraying of superior anterior acetabular labrum with T2 hyperintense signal is seen consistent with superior anterior right acetabular labral tear. Soft tissues: Visualized muscles demonstrate normal bulk and internal signal. Quadratus femoris muscle demonstrates no internal edema to suggest ischiofemoral impingement. The proximal sciatic neurovascular bundle appears normal adjacent to the hamstring tendons. No free pelvic fluid. Bladder wall thickness is normal. Genitourinary structures and bowel loops appear normal where visualized. IMPRESSION: 1. Right worse than left bilateral hip joint osteoarthritis. No marrow edema. No evidence of avascular necrosis of femoral head. No acute pelvic or hip fracture. No dislocation. 2. Distal right gluteus medius and minimus tendinosis with small amount of fluid distending right trochanteric bursa concerning for low-grade bursitis. Mild tendinosis involving right hamstring tendon origins at ischial tuberosity. No other muscle or tendon signal abnormalities. No soft tissue mass or drainable fluid collection. 3. Finding is suggestive of superior anterior right acetabular labral tear. Dictated by: Slim España M.D. on 10/20/2024 at 16:29 Approved by: Slim España M.D. on 10/20/2024 at 16:31
== END ==
PROVIDERS: Family Provider Student in an Organized Health Care Education/Training Program; PCP Student in an Organized Health Care Education/Training Program; Referring Provider Student in an Organized Health Care Education/Training Program; Visit Provider Student in an Organized Health Care Education/Training Program
DX: M16.0 Bilateral primary osteoarthritis of hip (principal); M47.816 Spondylosis without myelopathy or radiculopathy, lumbar region; M47.817 Spondylosis without myelopathy or radiculopathy, lumbosacral region; M51.360 Other intervertebral disc degeneration, lumbar region with discogenic back pain only; M48.061 Spinal stenosis, lumbar region without neurogenic claudication; M48.07 Spinal stenosis, lumbosacral region; M41.9 Scoliosis, unspecified; M67.952 Unspecified disorder of synovium and tendon, left thigh; M67.951 Unspecified disorder of synovium and tendon, right thigh; R32 Unspecified urinary incontinence; M25.559 Pain in unspecified hip
CPT/HCPCS: 72148; 73721

== ENCOUNTER → 2024-12-08 12:30 | Outpatient (CLI) | payer MEDICARE, SELFPAY ==
[2024-12-09 09:10] LABS: Rubeola Measles IgG > 300.0 AU/mL (Immune >16.4)
[2024-12-09 10:12] LABS: Mumps Virus IgG Antibody <9.0 AU/mL (Immune >10.9)
[2024-12-09 15:14] LABS: Rubella Antibody IgG 40.2 IU/mL (>15)
== END ==
PROVIDERS: Family Provider Student in an Organized Health Care Education/Training Program; PCP Student in an Organized Health Care Education/Training Program; Referring Provider Family Medicine; Visit Provider Family Medicine
DX: Z01.84 Encounter for antibody response examination (principal)
CPT/HCPCS: 36415; 86735; 86762; 86765

== ENCOUNTER → 2025-05-30 08:55 | Outpatient (CLI) | payer MEDICARE, SELFPAY ==
[2025-05-30 09:39] LABS: Add Manual Diff / Slide Review NO; Hematocrit 37.2 % (36-46); Hemoglobin 12.9 g/dL (12.0-16.0); Lymphocytes Absolute Auto 1900 /uL (1100-4500); Mean Corpuscular HGB Conc 34.6 % (30-36); Mean Corpuscular Hemoglobin 32.7 PG (26-34); Mean Corpuscular Volume 94.6 fL (80-100); Platelet Count 198 X10^3/uL (150-400)
--- NOTE | 2025-05-30 09:40 | EKG_ITS ---
[address] [address] Test Date: 2025-05-30 Pat Name: Jodi Franco Department: [facility] Room: Gender: Female Account Classification Clerk: KAYLEEN : 1950 Requested By: Order Number: [id number] Reading MD: Saturnino Grullon MD Measurements Intervals [place] Rate: 54 P: 65 MA: 174 QRS: 5 QRSD: 88 T: 30 QT: 408 QTc: 386 Interpretive Statements Sinus bradycardia Electronically Signed On 05-31-2025 7:36:11 PDT by Saturnino Grullon MD
[2025-05-30 09:53] LABS: Hemoglobin A1C% w Est Avg Glu 5.0 % (4.0-6.0)
[2025-05-30 09:59] LABS: Albumin 3.9 g/dL (3.5-5.0); Blood Urea Nitrogen 16 mg/dL (7-17); Calcium 9.7 mg/dL (8.4-10.2); Carbon Dioxide 22 mmol/L (22-32); Chloride 107 mmol/L (98-107); Estimated Glomerular Filt Rate > 60 mL/min (>60); Glucose 87 mg/dL (70-99); HEMOLYSIS < 15 (0-50); Potassium 4.2 mmol/L (3.4-5.1); Sodium 137 mmol/L (137-145)
[2025-05-30 10:06] LABS: Prealbumin 24.0 mg/dL (17.6-36.0)
[2025-05-30 10:15] LABS: Vitamin D 25 Hydroxy (D3) 64.1 ng/mL (30.0-100.0)
== END ==
PROVIDERS: PCP Student in an Organized Health Care Education/Training Program; Referring Provider Orthopaedic Surgery Adult Reconstructive Orthopaedic Surgery; Visit Provider Orthopaedic Surgery Adult Reconstructive Orthopaedic Surgery
DX: Z01.818 Encounter for other preprocedural examination (principal); R73.9 Hyperglycemia, unspecified; E55.9 Vitamin D deficiency, unspecified; M16.11 Unilateral primary osteoarthritis, right hip
CPT/HCPCS: 36415; 80048; 82040; 82306; 83036; 84134; 85025; 93005

== ENCOUNTER → 2025-06-07 13:35 | Outpatient (CLI) | payer MEDICARE, SELFPAY ==
--- NOTE | 2025-06-07 13:36 | DI.RAD.S_ITS ---
PROCEDURE: XR DEXA AXIAL SKELETON
== END ==
LOC: RAD 13:36
PROVIDERS: PCP Student in an Organized Health Care Education/Training Program; Referring Provider Orthopaedic Surgery Adult Reconstructive Orthopaedic Surgery; Visit Provider Orthopaedic Surgery Adult Reconstructive Orthopaedic Surgery
DX: M85.89 Other specified disorders of bone density and structure, multiple sites (principal); M16.11 Unilateral primary osteoarthritis, right hip; M25.552 Pain in left hip; M25.551 Pain in right hip
CPT/HCPCS: 77080

== ENCOUNTER → 2025-06-28 15:12 | Outpatient (CLI) | payer MEDICARE, SELFPAY ==
--- NOTE | 2025-06-28 15:13 | DI.MG.S_ITS ---
MM screening mammo BI: 06/28/2025. BI-RADS: 1 CLINICAL: 75-year old female for bilateral screening mammogram. Tyrer-Cuzick lifetime risk of 5.8%. No personal or first-degree family history of breast cancer. Current reported family history of breast cancer: maternal grandmother. PRIOR EXAMS: 10/30/21, 06/16/19. MAMMOGRAPHY TECHNIQUE: 2D and 3D (tomosynthesis) digital mammographic views obtained, with additional images as needed for full coverage. Current study was also evaluated with a Computer Aided Detection (CAD) system. DENSITY C. The breasts are heterogeneously dense, which may obscure small masses. MAMMOGRAPHY FINDINGS Bilateral: No suspicious mass, asymmetry, microcalcification, or other abnormality seen. IMPRESSION: * No evidence of malignancy. RECOMMENDATIONS Bilateral * Annual screening mammography. OVERALL ASSESSMENT CATEGORY BI-RADS-1: Negative. The [employer] recommends annual screening mammography beginning at age 40 for women with average risk of breast cancer. ELECTRONICALLY SIGNED: Jonas Carvajal M.D. on 06/29/2025 at 07:08:18 AM PT Interpreting Station ID: [id number]
== END ==
PROVIDERS: PCP Student in an Organized Health Care Education/Training Program; Referring Provider Student in an Organized Health Care Education/Training Program; Visit Provider Student in an Organized Health Care Education/Training Program
DX: Z12.31 Encounter for screening mammogram for malignant neoplasm of breast (principal); R92.333 Mammographic heterogeneous density, bilateral breasts; Z80.3 Family history of malignant neoplasm of breast
CPT/HCPCS: 77063; 77067

== ENCOUNTER 2025-07-16 09:24 | Day surgery (SDC) | payer MEDICARE, SELFPAY ==
[2025-07-16 09:52] VITALS: BP 124/67; PULSE 67; RESP 16; TEMP 36.7; O2SAT 100
[2025-07-16] MEDS: FLEETS ENEMA 1 EACH PR (09:55)
[2025-07-16] MEDS: LACTATED RINGERS 1,000 ML 42 ML IV (10:08)
--- NOTE | 2025-07-16 10:14 | PM.HP.IH.1 ---
History of Present Illness History of Present Illness Date Patient Seen: 07/16/25 Chief complaint: Colonoscopy Narrative: History of colon polyps [facility] Medical History (Updated 06/19/25 @ 14:29 by Annabelle Mancini MD) Primary osteoarthritis of right hip Right leg swelling Thyroid nodule Gastric polyps Hiatal hernia Low back pain Wears glasses Pelvic rash (~03/2022) Granuloma annulare (~2017) Rosacea (~2010) Psoriasis (~1974) Osteoarthritis of hands, bilateral (~2009) Environmental allergies PTSD (post-traumatic stress disorder) (~2006) Anxiety Brain damage (~2006) Anemia Vertigo Painful menstrual periods History of urinary incontinence (~2005) Hemorrhoid GERD (gastroesophageal reflux disease) Migraines Hypothyroidism (~2000) Osteoporosis (~2015) Depression (~1950) Right knee pain Scoliosis Dorsalgia Lumbar spondylosis Lumbar radiculopathy Surgical History (Updated 07/09/25 @ 14:38 by Liz Campos RN) Anesthesia History of cholecystectomy (~02/2007) History of surgical removal of pilonidal cyst (~03/1980) Family History Father History of heart attack Uncle No problems noted. Aunt History of colostomy Mother COPD (chronic obstructive pulmonary disease) Sister History of hysterectomy Grandmother Cancer Social History Smoking Status: Never smoker alcohol intake: never substance use type: other Meds Home Medications and Allergies Home Medications ?Medication ?Instructions ?Recorded ?Confirmed ?Type aspirin 81 mg tablet,delayed 81 mg PO DAILY 04/22/23 07/16/25 History release (Adult Low Dose Aspirin) atorvastatin 20 mg tablet 20 mg PO DAILY 04/22/23 07/09/25 History raloxifene 60 mg tablet 60 mg PO DAILY 04/22/23 07/09/25 History calcium gluconate 50 mg calcium 100 mg PO DAILY 06/01/23 07/09/25 History tablet cholecalciferol (vitamin D3) 50 50 mcg PO DAILY 06/01/23 07/09/25 History mcg (2,000 unit) capsule magnesium hydroxide 400 mg/5 mL 800 mg PO DAILY 06/01/23 07/09/25 History oral suspension Disabled Parking Permit #1 ea 12/20/23 07/03/25 Rx tirzepatide (weight loss) 2.5 2.5 mg (0.5 mL) SUBCUT QWEEK 4 02/19/25 07/16/25 Rx mg/0.5 mL subcutaneous solution weeks #2 mL melatonin 5 mg capsule mg PO 05/18/25 07/03/25 History docusate sodium 100 mg capsule 100 mg PO BID PRN constipation #60 07/03/25 07/09/25 Rx (Colace) caps oxycodone 5 mg tablet 5 mg PO Q6H PRN pain #25 tabs 07/03/25 07/09/25 Rx lorazepam 0.5 mg tablet 0.5 mg PO DAILY PRN anxiety #1 tab 07/12/25 Rx Allergies Allergy/AdvReac Type Severity Reaction Status Date / Time olanzapine (From Zyprexa) Allergy Mild Rash Verified 07/16/25 09:43 codeine AdvReac Severe Nausea Verified 07/16/25 09:43 risperidone (From Risperdal) AdvReac Mild Anxiety, Verified 07/16/25 09:43 tachypenia. Exam Vital Signs (past 8 hours): - 07/16/25 09:52 Temperature 98.0 F Pulse Rate 67 Respiratory Rate 16 Blood Pressure 124/67 Pulse Oximetry 100 Oxygen Delivery Method Room Air Oxygen Delivery Method Room Air Narrative Exam Narrative: Oropharynx free of lesions Chest clear to auscultation percussion Cardiac exam reveals no S3 or murmur Assessment & Plan Assessment & Plan narrative: History of colon polyps need for follow-up colonoscopy. Risks, benefits, alternatives have been explained. Time-Based Coding :: [TOTAL MINUTES] spent with patient and on the chart (including review of chart, obtaining history, exam, reviewing outside data, placing orders, documenting exam and treatment plan, and counseling patient) on [DATE]. 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
--- NOTE | 2025-07-16 10:15 | PM.OP.COLON ---
Operative Date/Time/Diagnoses Date of procedure: 07/16/25 Time of procedure: 00:00 Pre-op diagnosis: History of colon polyps indication Post-op diagnosis: same Procedure & Clinicians Study performed: Colonoscopy Same procedure(s) as scheduled: Yes Indications: History of colon polyps Surgeon: Tyuet Farley Anesthesia Type: MAC +/- Procedure Notes Procedure in detail: After informed consent was obtained the patient was placed in left lateral decubitus position. The video colonoscope was introduced the rectum slowly advanced cecum. Preparation was good. On slow withdrawal mucosa was carefully examined. The scope was removed. The patient tolerated procedure well. Blood loss none Complications none Sedation mac Findings 1. Normal colonoscopy to cecum Patient could have follow-up colonoscopy in 5 years. Estimated Blood Loss: 0 Complications: none
[2025-07-16 10:43] VITALS: BP 88/52; PULSE 86; RESP 15; TEMP 36.6; O2SAT 98
[2025-07-16 10:49] VITALS: BP 106/52; PULSE 79; RESP 15; TEMP 36.6; O2SAT 96
== END 2025-07-16 11:16 | disposition home or self-care (01) ==
PROVIDERS: PCP Student in an Organized Health Care Education/Training Program; Referring Provider Internal Medicine Gastroenterology; Visit Provider Internal Medicine Gastroenterology
PROC: 0DJD8ZZ Inspection of Lower Intestinal Tract, Via Natural or Artificial Opening Endoscopic (ICD-10-PCS; CPT 45378; principal; 2025-07-16 10:30)
DX: Z12.11 Encounter for screening for malignant neoplasm of colon (principal); Z86.0100 Personal history of colon polyps, unspecified
CPT/HCPCS: G0105; J2704; J7120

== ENCOUNTER 2025-07-24 15:23 | Inpatient (IN) | payer MEDICARE, SELFPAY ==
[2025-07-09 13:29] VITALS: BMI 26.2
[2025-07-23] VITALS (13 sets, daily range): BP systolic 97–135; BP diastolic 52–76; PULSE 62–103; RESP 12–26; TEMP 36.2–36.9; O2SAT 91–100; BMI 26.0
--- NOTE | 2025-07-23 | DI.RAD.S_ITS ---
PROCEDURE: XR HIP W PEL IF DONE RT 2V INDICATIONS: RT TOTAL HIP TECHNIQUE: 2 view(s) of the hip acquired. COMPARISON: Merged With [facility], [place], XR HIP W PEL IF DONE LT 2V, 10/16/2024, 11:10. Merged With [facility], CR, XR HIP W PEL RT 2V, 07/23/2025, 15:47. FINDINGS: Bones: Patient is status post right hip arthroplasty, with hardware components in expected positions. The hip joint appears congruent. The visualized bony structures appear intact. Soft tissues: Overlying postoperative changes are noted. No suspicious soft tissue densities. IMPRESSION: Expected post-operative appearance of a hip arthroplasty. Dictated by: Maye TRONCOSO Interpreted: Kenny Bruner MD on 07/24/2025 at 8:48 Transcribed by: YE on 07/24/2025 at 8:49 Approved by: Kenny Bruner M.D. on 07/26/2025 at 16:11
--- NOTE | 2025-07-23 06:00 | DI.RAD.S_ITS ---
PROCEDURE: XR HIP W PEL IF DONE RT 2V INDICATIONS: ELVIS TECHNIQUE: 3 views of the hip were acquired. COMPARISON: [facility], CR, XR PELVIS 1-2V, 05/18/2025, 14:27. [facility], CR, XR HIP W PEL IF DONE LT 2V, 10/16/2024, 11:10. FINDINGS AND IMPRESSION: Intraoperative fluoroscopic images obtained for right hip arthroplasty surgery. Please see operative oval details. Dictated by: Rom Guevara M.D. on 07/23/2025 at 17:13 Approved by: Rom Guevara M.D. on 07/23/2025 at 17:13
[2025-07-23] MEDS: ACETAMINOPHEN 325 MG TABLET 975 MG PO (13:18)
--- NOTE | 2025-07-23 13:18 | PM.PREOP ---
Pre-operative Note Interval Note History & Physical reviewed/Exam performed by Physician: Yes Changes to H&P: No
[2025-07-23] MEDS: LACTATED RINGERS 1,000 ML 42 ML IV ×2 (13:19→18:18)
[2025-07-23] MEDS: KETOROLAC 30 MG/ML VIAL 15 MG INJ (15:27)
[2025-07-23] MEDS: EPINEPHrine 1 MG/ML TOP (15:37)
--- NOTE | 2025-07-23 16:23 | SUR.OPER ---
Supine on padded [place] table with bilateral legs secured in padded positioning boots and suspended in positioning spars, operative leg in traction per surgeon. Head on one pillow. Bilateral arms on padded armboards <90 degrees abduction. Padded perineal post in place per surgeon.
--- NOTE | 2025-07-23 16:54 | P.OP_ITS ---
Operative Date/Time/Diagnoses Date of procedure: 07/23/25 Time of procedure: 15:00 Pre-op diagnosis: Right hip arthritis and osteopenia Post-op diagnosis: same Procedure & Clinicians Procedure: Right total hip arthroplasty Same procedure(s) as scheduled: Yes Surgeon: Holden Hairston Assisted?: Yes Curing Supervisor: Keri Kuhn Anesthesia Type: Spinal, Sedation and Local Operative Notes Findings: Severe arthritis and weak bone Closure Type: primary Applied: implant(s) Estimated Blood Loss (mL): 250 Procedure in detail: Right Cemented Direct Anterior Depuy Total Hip Arthroplasty: Implants: * Joao G7 size 50 cup?with 2 screws (40, 15) * Cemented Avenir femoral stem size 1 standard offset? * 36 mm -3.5 ceramic femoral head Procedure Summary: This 75-year-old female patient had a T-score of-2.3 on her preoperative DEXA scan so I utilized cemented fixation for her femur and supplemental screws in her acetabular component. She was very mobile and flexible but I still utilized a conjoined tendon release in order to minimize tension on her femur during femoral preparation. During initial trialing found that offset was slightly more than the nonoperative side with a-3.5 head and a standard offset stem which is the lowest offset construct that can be constructed in the system. The operative site was conservatively long the so I sank the stem down further prior to cementing it in place. Procedure in Detail: This patient was seen preoperatively and evaluated for hip pain which was refractory to numerous nonoperative treatment modalities. Their hip pain correlated with radiographic changes demonstrating significant degeneration in the hip joint. The risks and benefits of continued nonoperative management versus operative management were discussed at length and all of the patient?s questions were answered. Additional educational materials providing further details beyond our discussion in clinic were provided via a publicly available patient education video which included the incidence of medical complications associated with total hip arthroplasty, reasons for revision following total hip arthroplasty, and patient satisfaction rates following total hip arthroplasty. With this understanding of the risks inherent to the procedure, the patient elected to move forward with operative management. Following preoperative optimization, the patient was scheduled for surgery. The patient was met in the preoperative holding area the day of the procedure and all questions were answered. The patient?s nares were swabbed in order to decolonize them from MRSA. Informed consent was signed and the right limb was marked with indelible ink.? The patient was brought back to the operating room where anesthesia was induced. The patient was transferred to the [place] table and all bony prominences were padded. The operative site was prepped and draped in the usual sterile fashion. Prior to incision, tranexamic acid and cefazolin were administered. Operative templating images were displayed demonstrating the anticipated implant sizes and correct operative extremity. A timeout procedure was performed verifying the patient?s identity, medical comorbidities, allergies, relevant medications, anesthesia type and the surgical plan. All present were in agreement. The assistance of a physician animal assistant was required for positioning, room setup, soft tissue retraction and wound closure. Without this assistance, the procedure would have been significantly more challenging and time consuming.?? A direct anterior approach to the hip was utilized. This was performed with a longitudinal incision through a Heuter interval. The incision was planned 2 cm distal and 2 cm lateral to the ASIS extending towards the lateral patella, in line with the muscle body of the TFL. Following incision, the subcutaneous tissue was dissected while taking care to avoid injury to the lateral femoral cutaneous nerve. The fascia overlying the TFL was identified by dissecting off the overlying fat and identifying perforating vessels to the TFL. The TFL fascia was incised and dissected away from the medial border of the TFL. A retractor was placed over the superior femoral neck between the abductors and the hip capsule and used to reflect the TFL laterally. A Bartholomew self-retainer was then placed in the distal aspect of the wound between the TFL and the rectus femoris. This was tensioned to open up the direct anterior interval and the lateral circumflex vessels were identified and coagulated using electrocautery. The floor of the TFL fascia was incised, exposing the pericapsular fat overlying the hip capsule. A second cobra retractor was placed on the inferior femoral neck. A retractor was placed on the anterior wall of the acetabulum and used to tension the reflected head of rectus femoris, which was then released in order to limit soft tissue tension. A capsulotomy was made in the midline of the anterior hip capsule in line with the femoral neck ending at the vastus tubercle. The anterior retractor was removed as soon as the capsulotomy was completed in order to limit the amount of time that a soft tissue retractor remained on the anterior wall and limit tension on the femoral nerve. Tag stitches were placed in the superior and inferior leaflets of the hip capsule. An Brendan soft tissue retractor was introduced over the tag stitches and tensioned in the interval between the rectus femoris and the TFL in order to retract and protect those muscles. The cobra retractors were replaced intracapsularly, with one over the superior neck in the pocket created by the base of the greater trochanter and the other on the femoral head. The capsulotomy was extended laterally to the base of the greater trochanter and medially to the lesser trochanter. This required externally rotating the hip. Once the lesser trochanter had been identified, a neck cut was planned according to measurements from preoperative templating. A ruler was cut at the length measured between the superior aspect of the lesser trochanter and the collar of the prosthesis. This line was extended towards the inferior aspect of the lateral cobra retractor to plan a cut which would leave minimal residual femoral neck laterally. The neck was cut at 60 degrees of external rotation along that line. A second cut was performed to remove a large napkin ring and facilitate head extraction. The napkin ring cut and femoral head were removed.?? A broad anterior wall retractor was placed between the labrum and the anterior capsule so that the anterior capsule would prevent capturing and pinching the femoral nerve anteriorly. An additional retractor was placed on the posterior wall. External rotation and traction were applied through the [place] table so that the cut surface of the femoral neck would not restrict access to the acetabulum. The labrum was excised sharply and the pulvinar was excised with electrocautery to limit bleeding from branches of the obturator artery. Acetabular reamers were selected based on preoperative templating and measurements of the excised femoral head. These were introduced into the acetabulum. Fluoroscopy was utilized to replicate a standing AP pelvis radiograph by centering over the pelvis, rotating until there was appropriate symmetry between the obturator foramen, and introducing caudal tilt to match the position of the pubic symphysis relative to the sacrococcygeal junction according to the patient?s anatomy. Once satisfied with the reaming depth corresponding to the preoperative template and the pinch fit between the columns, an appropriate sized acetabular cup was selected which would provide 1 mm of press-fit. This cup was introduced and manipulated until appropriate abduction and anteversion angles were obtained with careful attention to appropriate abduction and anteversion angles as evaluated by the position of the cup relative to the anterior and posterior smith of the acetabulum and the AP fluoroscopy which recreated the patient?s standing radiograph. The cup was impacted into place. Two screws were placed to provide additional fixation. Peripheral osteophytes were removed. The acetabular liner was then placed with care to ensure locking of the locking mechanism. Attention was then turned to the femur. All retractors were removed, traction was released, a retractor was placed in the interval between the hip capsule and the gluteus minimus. The lateral capsule was released using electrocautery. Traction was released and a [place] hook was placed posteriorly around the proximal femur at the level of the vastus ridge. The table height was lowered in order to restrict the tension on the anterior structures during hip hyperextension to limit the risk of femoral nerve palsy. With traction off and the hip at 90 degrees of external rotation, the hip was hyperextended and adducted while manually elevating the femur away from the acetabulum with the [place] hook to avoid hooking the greater trochanter on the pelvis. An asymmetric retractor was placed over the calcar and a broad double-pronged retractor was placed over the greater trochanter. The tag stitch capturing the lateral leaflet of the capsule was moved to the medial side, leaving the conjoined and piriformis tendons isolated in the face of the greater trochanter. The hip was externally rotated and elevated. A release of the conjoined tendon was utilized to protect the femur from excess tension during broaching. The canal was opened with an opening broach and a rasp was used to remove cancellous bone. A rongeur was used to remove the residual lateral bone at the base of the greater trochanter to avoid placing the stem in varus. The femur was then broached to the appropriate sized stem yielding good rotational fit and fill of the canal as well as appropriate version of the stem trial. Neck and head trials were placed, all retractors were removed and the hip was returned to neutral abduction and extension. I then reduced the hip and manually trialed it before changing surgical gloves. Initial trialing was performed with a size 1 broach, a standard offset neck and a -3.5 head. I initially manually externally rotated the hip and found that it did not dislocate. I then locked the hip in 45 degrees of external rotation and dropped it to the floor with traction off which demonstrated no instability. An OrthoGrid overlay image was obtained by matching the abduction angle of the nonoperative hip to the operative hip and overlaying the offset and leg length of the operative side relative to the nonoperative side while matching pelvic morphology. This overlay image demonstrated a slight increase in offset and a significant increase in leg length of approximately 5 mm. AP and lateral hip fluoroscopic images were obtained to evaluate the broach size which demonstrated good canal fill. The hip was dislocated and I returned to the broaching position. Based on my evaluation during initial trialing I planned to sink the stem further down the canal. I was able to do this and measured that I had sunk it approximately 5 mm. I then returned to the broaching position and prepared for cementation. Prior to cementation I irrigated the canal, placed a cement restrictor, irrigated the canal again, placed epinephrine-soaked vaginal packing with a whistle-tip catheter, and removed the whistle-tip catheter after insertion of cement. The definitive stem was placed. Cement was allowed to dry. The trunnion was cleaned and dried. I placed a ceramic head onto the trunnion and impacted it into place on the Garcia taper.?? All retractors were removed and the hip was reduced. A dilute mixture of betadine and peroxide was used to bathe the soft tissues during final fluoroscopic assessment. Appropriate component positioning was confirmed on an OrthoGrid overlay image comparing the operative side to the nonoperative side. Appropriate stem fill was evaluated on AP and lateral hip radiographs. No previously unrecognized fractures were identified on these radiographs. There was no hip instability with maximum (115?) external rotation as well as a 45 degree drop test. The hip was copiously irrigated with pulse lavage. The capsule was closed with absorbable interrupted suture. The TFL fascia was closed with barbed suture while carefully protecting the lateral femoral cutaneous nerve from entrapment. A mixture of Ropivacaine, Epinephrine and Toradol was infiltrated throughout the soft tissues. The skin was closed with 2-0 and 3-0 sutures. Surgical glue was applied and a soft dressing was placed.??The sponge, instrument and needle counts were reported as being correct at the end of the case.??No obvious complications occurred. The patient was transferred from the [place] table back to a stretcher. The patient emerged from anesthesia without difficulty and was taken to the PACU in a stable condition.? Plan for aftercare: * No hip precautions * Weightbearing as tolerated * Aspirin 81 twice per day for DVT prophylaxis * Anticipate discharge home tomorrow * Multimodal pain regimen with no IV opioids ordered * Follow up at [facility] in 2 weeks Complications: none Post-operative Condition: stable Disposition: observation
[2025-07-23] MEDS: fentaNYL 100 MCG/2 ML INJ 25 MCG IV ×2 (17:54→18:02)
[2025-07-23] MEDS: ONDANSETRON 4 MG/2 ML INJ IV (18:00)
[2025-07-23] MEDS: hydrOXYzine 50 MG/ML INJ 25 MG IM (18:11)
--- NOTE | 2025-07-23 18:53 | SUR.PHASEI ---
Pt transferred to room 221 in bed with 1 belongings bag. SBAR report to Sunni MELO and Ashlie.
--- NOTE | 2025-07-23 18:58 | PC.NURSE ---
Received report from Rosamaria from PACU, pt is an anterior total hip w/Dr. Hairston. Arrived to floor at approx. 1850, C/O pain 5-6/10 and requesting additional meds but per report received fentanyl 50mcg, oxy 5mg, 50mg IM vistiril, and IV zofran at approx. 1800 from PACU nurse and concerned about over-sedation. Explained to pt that she will have pain but we will try to keep it manageable and take the edge off with meds, [employer] provided ice pack. Preparing for change of shift.
[2025-07-23] MEDS: LACTATED RINGERS 1,000 ML 100 ML IV (19:25)
[2025-07-23] MEDS: ACETAMINOPHEN 325 MG TABLET 650 MG PO (20:04)
[2025-07-23] MEDS: ASPIRIN EC 81 MG TABLET PO (20:04)
[2025-07-23] MEDS: ATORVASTATIN 20 MG TABLET PO (20:04)
[2025-07-23 22:31] LABS: Hematocrit 31.9 % (36-46); Hemoglobin 11.0 g/dL (12.0-16.0)
[2025-07-24] VITALS (9 sets, daily range): BP systolic 70–106; BP diastolic 42–58; PULSE 63–87; RESP 13–18; TEMP 36.3–36.6; O2SAT 94–98
[2025-07-24] MEDS: ACETAMINOPHEN 325 MG TABLET 650 MG PO ×4 (03:29→20:48)
[2025-07-24] MEDS: LACTATED RINGERS 1,000 ML 100 ML IV (03:42)
--- NOTE | 2025-07-24 07:25 | P.DS_ITS ---
History of Present Illness History of Present Illness Chief complaint: Right Total Hip Arthroplasty/Anterior Approach Narrative: Attending: Dr. Holden Hairston Orthopedic Procedures: ?Right Total Hip Arthroplasty 75 year old female with a past medical history of psoriasis, anemia, GERD, migraines and anxiety presented to [facility] on 07/23/2025 for planned right total hip arthroplasty by Dr. Hairston. This elective procedure was indicated by chronic right hip arthritis that failed to improve sufficiently with conservative treatment. On the date of surgery there were no changes to the patient?s medical history, medications or allergies. Consent had been obtained and the patient agreed to proceed with planned surgery. Discharge Providers Provider Discharge Date: 07/24/25 Primary care physician: Annabelle Mancini MD Consults: 07/23/25 18:33 Consult to Discharge Planning Routine Comment: Consult to Physical Therapy Evaluate & Treat Comment: Physician Instructions: WBAT Discharge provider: GENESIS Delgado Dr Summary Hospital Course Hospital Course: On 07/23/2025 the patient was brought to the operating room for planned right total hip arthroplasty by Dr Hairston. There were no known intraoperative complications. The patient was transferred to the postoperative recovery area and monitored appropriately. Later the patient was transferred to the acute care unit [facility] for monitoring overnight and physical therapy. There were no acute events overnight. Hemoglobin on day of surgery was 11.0 and hematocrit was 31.9. On postoperative day one, the patient's vital signs were stable, and they were making urine spontaneously. The patient was awaiting physical therapy evaluation during orthopedic rounds. Pain was controlled on oral analgesics including acetaminophen, oxycodone and tramadol. She wishes to avoid meloxicam and she was initiated on ibuprofen in a scheduled manner. Her blood pressure was 101/50 at midnight however her normal blood pressure is in the 110's/60's chronically. She was encouraged to continue oral intake of fluids and her IV fluids were to be continued through physical therapy. The patient denied any numbness or tingling in the operative leg. The patient agreed with preoperative plan to discharge home on postoperative day one. They have no acute concerns or questions. ROS today: no chest pain, dyspnea, fever, chills, calf pain, nausea or emesis Exam Vital Signs (past 8 hours): - 07/24/25 00:48 Temperature 97.9 F Pulse Rate 73 Respiratory Rate 16 Blood Pressure 101/50 L Pulse Oximetry 97 Oxygen Delivery Method Room Air Oxygen Flow Rate 0 Narrative Exam Narrative: Well developed, well-nourished 75 year old female, resting comfortably Normal respiratory effort on room air without accessory muscle use Dressing is clean, dry and intact to the right hip without drainage. No hematoma. Flexion and extension of the first hallux, ankle and knee are intact Calves are soft and non-tender to operative extremity, SCDs in place Palpable dorsalis pedis pulse. Sensation grossly intact to light touch about L2- S1 distributions Objective Labs 07/23/25 22:21 Labs: Laboratory Results - last 24 hr 07/23/25 22:21 Hgb 11.0 L Hct 31.9 L PFSH Medical History (Updated 06/19/25 @ 14:29 by Annabelle Mancini MD) Primary osteoarthritis of right hip Right leg swelling Thyroid nodule Gastric polyps Hiatal hernia Low back pain Wears glasses Pelvic rash (~03/2022) Granuloma annulare (~2017) Rosacea (~2010) Psoriasis (~1974) Osteoarthritis of hands, bilateral (~2009) Environmental allergies PTSD (post-traumatic stress disorder) (~2006) Anxiety Brain damage (~2006) Anemia Vertigo Painful menstrual periods History of urinary incontinence (~2005) Hemorrhoid GERD (gastroesophageal reflux disease) Migraines Hypothyroidism (~2000) Osteoporosis (~2015) Depression (~195) Right knee pain Scoliosis Dorsalgia Lumbar spondylosis Lumbar radiculopathy Surgical History (Updated 07/09/25 @ 14:38 by Liz Campos RN) Anesthesia History of cholecystectomy (~02/2007) History of surgical removal of pilonidal cyst (~03/1980) Family History Father History of heart attack Uncle No problems noted. Aunt History of colostomy Mother COPD (chronic obstructive pulmonary disease) Sister History of hysterectomy Grandmother Cancer Social History household members: spouse and significant other Smoking Status: Never smoker alcohol intake: never substance use type: other Discharge Assessment & Plan Assessment and Plan Assessment: 75 year old female with a past medical history of psoriasis, anemia, GERD, migraines and anxiety is post operative day 1 from a right total hip arthroplasty by Dr. Hairston at [facility] on 07/23/2025. The patient is recovering well with appropriate pain control on oral analgesics and stable vital signs. The patient is comfortable with planned discharge home today on post operative day one pending evaluation with physical therapy. Plan: - Weight bearing as tolerated to operative extremity with front wheeled walker - Hip precautions: none - Antibiotics: 2 postoperative doses of Ancef - DVT prophylaxis: 81 mg of aspirin by mouth twice daily - Pain control: multimodal analgesia with acetaminophen, ibuprofen, tramadol and oxycodone. Minimize use of opioid medication. Ice to surgical site. - Bowel regimen: docusate sodium twice daily for constipation - Physical therapy evaluation today prior to discharge - Follow up: 2 week follow up at [facility] - Discharge medications: none. Post operative medications were prescribed prior to surgery - Disposition: home today All patient questions were answered, and they verbalized agreement with the above plan. Call [facility] or service station console operator provider with any questions or concerns. Discharge Plan Discharge Plan Provider Discharge Comment: SURGICAL PROCEDURE: Right Total Hip Arthroplasty SURGEON: Dr. Hairston at [facility] DATE: 07/23/25 ACTIVITY INSTRUCTIONS - You are weight bearing as tolerated to the right lower extremity with a front wheeled walker at all times. We encourage active movement of the toes and ankle every hour while awake to prevent stiffness. - You have no hip precautions - Limit your steps to no more than 1000 steps per day for the first week after surgery to limit swelling. - Do not drive while taking narcotic medications and recovering from your surgery. DRESSING CARE - You have an aquacell dressing on top of your incision. This is a waterproof dressing and so you may shower with the dressing so long as the dressing remains clean and dry to the surgical site. Leave the dressing in place until your follow up in the orthopedic clinic. If the dressing becomes saturated or is disrupted call our office for further guidance. POST-OPERATIVE INSTRUCTIONS - If you notice fever, chills, night sweats, redness, excessive drainage or bleeding, a sharp increase in pain that persists after taking pain medication, pain in your calf muscles, chest pain or trouble breathing please unwrap the dressing and investigate. Then call the office with findings for further guidance. If it is after regular clinic hours, please seek care in the emergency department. - In the rare case of any severe chest pain and trouble breathing, seek immediate care, do not delay for a call to the clinic. - Use ice to the affected extremity for 15-30 minutes increments as much as possible. Use your ice machine as discussed in your pre-operative visit. - Keep extremity elevated to the level of the heart to reduce swelling. You can use ice on top of the dressing to reduce pain and swelling of the extremity. - You should consume a low sodium diet after surgery to limit swelling. You can gradually resume your normal diet if you have no nausea or vomiting - Physical therapy should begin about 7-10 days after surgery. Your first evaluation should already be scheduled. Call our office if you cannot schedule your therapy in the expected time frame. - Your follow up is already scheduled for 2 weeks after your surgery at the Orthopedic clinic. - You should have no dental procedures for 6 months following your total joint replacement. - Please refer to Dr. Hairston?s educational videos on YouTube for a reference on your post operative care. [email or web address] - Call [facility] at [phone] with any questions or concerns. MEDICATIONS - Please refer to the ?Orthopedic Medication Instructions? sheet provided at your pre-operative visit. Written instructions are provided below as a reminder. - Take two pills of 500 mg Tylenol (acetaminophen) every 8 hours regardless of pain in a scheduled manner. Do not exceed 3000 mg of Tylenol (from ALL sources, including over the counter combination products) in a 24-hour period due to risk of liver injury. - Take 600 mg of ibuprofen (Advil) by mouth every 6-8 hours for pain control. This is NSAID (anti-inflammatory) medication to reduce swelling and pain. - Take one pill of 5 mg oxycodone by mouth every 4-6 hours as needed for break through pain after taking your regular Tylenol and anti-inflammatory. Oxycodone and Tramadol are opioids, which means they are similar to morphine, heroin or fentanyl. Our goal is for you to take as little of this as possible because the side effects from it can be very severe. If you are able to get through your recovery process taking 10 pills or less please share your story with other patients by logging onto [email or web address] and sharing what strategies you used to avoid these dangerous medications. You can also read other patients? stories on that website to get strategies that go above and beyond what we have discussed to help you manage this pain while avoiding opioids. - Take 200 mg of Colace by mouth every 12 hours for constipation. Narcotic medications such as oxycodone and tramadol as well as anesthesia may increase your risk of constipation after surgery. - Take 4 mg of Zofran by mouth every 6 hours as needed for uncontrolled nausea or vomiting. If you have persistent nausea and vomiting call our office or seek care in the emergency department. - Take one pill of 81 mg of aspirin two times daily 12 hours apart for 6 weeks for blood clot prevention. Take this medication regardless of pain. - Take a proton pump inhibitor such as Pantoprazole or Omeprazole if you have a history of acid reflux or are noticing stomach irritation. NSAIDs and aspirin can both cause stomach irritation and that medication can help avoid stomach issues. - If you stopped taking a ?biologic? medication that you normally take for an issue such as rheumatoid arthritis or psoriasis prior to surgery, do not restart it until we have seen you back in clinic and confirmed that your wound is healed. - Resume all of your normal home medications tomorrow morning unless specified otherwise by your surgeon. Nursing Discharge Comment: You were given 975mg of Tylenol at 1:18pm. You can have another dose of Tylenol at 9:18pm. Do not exceed 3000mg in a 24 hour period. Discharge orders & Medications Discharge Orders: Discharge (Order); Ordered 07/24/25 Ordered By: Keri Kuhn Prescriptions: New ondansetron 4 mg tablet,disintegrating 4 mg PO Q8H PRN (Reason: nausea and vomiting) Qty: 10 0RF Continued cholecalciferol (vitamin D3) 50 mcg (2,000 unit) capsule 50 mcg PO DAILY magnesium hydroxide 400 mg/5 mL suspension 800 mg PO DAILY calcium gluconate 50 mg calcium tablet 100 mg PO DAILY tirzepatide (weight loss) 2.5 mg/0.5 mL solution 2.5 mg SUBCUT QWEEK 28 Days Qty: 2 3RF lorazepam 0.5 mg tablet 0.5 mg PO DAILY PRN (Reason: anxiety) Qty: 1 0RF (DME) Disabled Parking Permit See Rx Instructions .ROUTE .MEDSUPPLY Qty: 1 0RF Rx Instructions: I find this patient to be medically disabled and qualified for Disabled Parking as indicated and signed on the accompanying Disabled Parking Application for Individuals. melatonin 5 mg capsule PO docusate sodium [Colace] 100 mg capsule 100 mg PO BID PRN (Reason: constipation) Qty: 60 0RF oxycodone 5 mg tablet 5 mg PO Q6H PRN (Reason: pain) Qty: 25 0RF raloxifene 60 mg tablet 60 mg PO DAILY atorvastatin 20 mg tablet 20 mg PO DAILY Changed aspirin [Adult Low Dose Aspirin] 81 mg tablet,delayed release (DR/EC) 81 mg PO BID Qty: 90 0RF Follow up/Referrals: Annabelle Mancini MD [Primary Care Provider, Family Practice] Visit Report/Discharge Packet Instructions: DI for Hip Replacement Stand Alone Forms: Surgery Discharge Print Language: Tajik Discharge Data Primary Care Provider: Annabelle Mancini Attending Provider: Holden Hairston VTE Deep Vein Thrombosis/Pulmonary Embolism Present on Admission: No IH PROFEE Charge Codes Discharge inpatient/observation: [id number]
[2025-07-24] MEDS: CHOLECALCIFEROL (VITAMIN D3) 1,000 UNIT TABLET 2000 UNIT PO (08:14)
[2025-07-24] MEDS: ASPIRIN EC 81 MG TABLET PO ×2 (08:15→20:47)
[2025-07-24] MEDS: CALCIUM CARBONATE 500 MG TAB PO (08:16)
--- NOTE | 2025-07-24 08:20 | PT-IP ANOTE ---
PT evaluation not appropriate PT has low BP 90s over 40s with symptoms of lightheaded supine. RN in room when vitals taken. Will continue to trial in AM/PM
[2025-07-24] MEDS: ONDANSETRON 4 MG ODT PO (10:02)
--- NOTE | 2025-07-24 12:06 | PC.NURSE ---
The pt had R hip replacement post and is post op day 1 is still very hypotensive. Manual BPs as follows: 0745 BP 84/54 HR 76, repeat BP at 930 86/58 HR 68, most recent manual BP at 1110 is 96/50 HR 68 all supine. Sitting BP at 1113 92/46 HR 63, Standing at 1115 70/42 HR 87 pt was symptomatic. IV fluids are continuing at 100 ml/hr. Since 0700 AM the pt has drank 1020 ml.
--- NOTE | 2025-07-24 12:30 | P.PN_ITS ---
Subjective Subjective Interval history: Patient reports pain is 3/10 on a pain scale with oxycodone, tramadol, tylenol and ice which has improved since her evaluation earlier today She denies any dizziness or lightheadedness but she has not been out of bed She is still making urine and a commode is being moved to her room. She has been up to bathroom with 2 person assist Physical therapy was not completed today due to hypotension She is accompanied by her Exam Vital Signs (past 8 hours): - 07/24/25 08:33 Temperature 97.3 F L Pulse Rate 78 Respiratory Rate 14 Blood Pressure 84/54 L Pulse Oximetry 97 Oxygen Flow Rate 0 Oxygen Delivery Method Room Air Oxygen Flow Rate 0 Objective Labs 07/23/25 22:21 Labs: Laboratory Results - last 24 hr 07/23/25 22:21 Hgb 11.0 L Hct 31.9 L PFSH Medical History (Updated 06/19/25 @ 14:29 by Annabelle Mancini MD) Primary osteoarthritis of right hip Right leg swelling Thyroid nodule Gastric polyps Hiatal hernia Low back pain Wears glasses Pelvic rash (~03/2022) Granuloma annulare (~2017) Rosacea (~2010) Psoriasis (~1974) Osteoarthritis of hands, bilateral (~2009) Environmental allergies PTSD (post-traumatic stress disorder) (~2006) Anxiety Brain damage (~2006) Anemia Vertigo Painful menstrual periods History of urinary incontinence (~2005) Hemorrhoid GERD (gastroesophageal reflux disease) Migraines Hypothyroidism (~2000) Osteoporosis (~2015) Depression (~1950) Right knee pain Scoliosis Dorsalgia Lumbar spondylosis Lumbar radiculopathy Surgical History (Updated 07/09/25 @ 14:38 by Liz Campos RN) Anesthesia History of cholecystectomy (~02/2007) History of surgical removal of pilonidal cyst (~03/1980) Family History Father History of heart attack Uncle No problems noted. Aunt History of colostomy Mother COPD (chronic obstructive pulmonary disease) Sister History of hysterectomy Grandmother Cancer Social History household members: spouse and significant other Smoking Status: Never smoker alcohol intake: never substance use type: other Assessment & Plan Post-op Assessment and plan (1) Primary osteoarthritis of right hip: Assessment and Plan narrative: 75-year-old female who is postoperative day 1 from a right total hip arthroplasty by Dr. Hairston at [facility] on 07/23/2025. At baseline, her blood pressure is around 110/60. Her blood pressure this morning was documented to be 101/50. I discussed her hypotension with her nurse during rounds this morning and asked for repeat vital signs prior to discharge. Repeat vitals showed significant hypotension of 84/54 at 833am. The floor nurse contacted an orthopedic PA who was not working today via [employer]. As she did not receive a response, she called the operative surgeon Dr. Hairston with concern for hypotension. Dr. Hairston recommended initiation of albumin intravenously and discontinuation of IV fluids. The patient has still not yet been evaluated by physical therapy. As a result her discharge order has been canceled and she will stay the night at [facility] to monitor her hypotension and await physical therapy tomorrow morning. Orthopedics will re-evaluate in the morning. She was admitted to [facility] due to hypotension post operatively. Postoperative Procedures: Procedures Operation Date: 07/23/25 14:45 Actual Procedure Side Surgeon p Total Hip Arthroplasty/Anterior Approach Right Holden Hairston MD Quality VTE Deep Vein Thrombosis/Pulmonary Embolism Present on Admission: No
[2025-07-24] MEDS: IBUPROFEN 600 MG TABLET PO ×2 (12:35→17:28)
[2025-07-24] MEDS: ALBUMIN HUMAN IV (12:36)
--- NOTE | 2025-07-24 13:04 | PT-IP ANOTE ---
Pt continues to be symptomatic with orthostatic hypotension and is no longer being discharged today. PT will continue to follow for evaluation as appropriate.
--- NOTE | 2025-07-24 16:47 | CM.DANOTE ---
DCP Assessment note pt is a 75yo F POD1 right total hip with Dr. Hairston. LAN ADMINISTRATOR reviewed EMR. per RN, hypotensive throughout day. unable to work with therapies. DC order in and then canceled. changed to INPT due to staying another night. per chart review, has necessary DME for home, lives with spouse in [place], and already has OP PT arranged. pending therapy reviews/pt's BP, anticipate dc home tomorrow with OP f/u and spouse support. will continue to follow closely if any addition DCP needs should arise RAMIRO Alvarez Discharge Planning/Care Management CM Discharge Assessment Start: 07/23/25 12:17 Freq: Status: Active Protocol: Document 07/24/25 16:44 SL (Rec: 07/24/25 16:47 SL [id number]) Discharge Planning Assessment Assigned Discharge RAMIRO Díaz Commercial Portfolio Manager Provider [facility] Insurance Medicare DPOA/Assigned Saturnino, spouse Designee Name Contact Information [phone] Advance Directives? Yes; POLST Advance Directives Yes on File History Provided By Family Member Prior Living House Arrangements Household Members spouse,significant other Independent with ADL Yes 's Is patient alert and Yes oriented? DME Already Rented / FWW / Walker,Bedside Commode Owned Comment pending therapy recs Barriers to Yes Discharge Comment hypotensive post OP Discharge Plan Home Transportation anticipate dc home with spouse Arrangement Referrals Initiated None needed Review Status In Process Please Provide Date 07/24/25 Initial DC Assessment Was Performed Next Review Type Continued Stay Review Pre-Anesthesia Assessment Start: 07/09/25 13:29 Freq: Status: Active Protocol: Document 07/09/25 13:29 LB (Rec: 07/09/25 13:51 LB [id number]) Pre-Anesthesia Assessment Information obtained Phone via Height 160.02 cm Weight 67.132 kg Body Mass Index (BMI 26.2 ) Has patient seen a Yes specialist in last 12 months? If yes, specialist Orthopedist seen Patient hospitalized No or treated in the ER in the last year? Patient experienced None in the last year Patient experienced Yes syncope or dizziness in the last year? If yes, please Rare postural dizziness. describe Does patient have None history of Has patient ever had Yes a blood clot? Is patient on Yes anticoagulant therapy? If yes, Aspirin 81mg daily. anticoagulant name Patient advised to Yes hold this medication prior to surgery? Does patient have a No tombstone polisher? Was cardiac testing No performed? Does patient have No history of a pacemaker/ICD? Cardiac Clearance Not Applicable Received Can patient climb a Can't d/t hip pain. flight of stairs without shortness of breath? Can patient walk Yes around the grocery store without shortness of breath? Does patient have None history of Does patient use No oxygen at home? Does patient have No history of Sleep Apnea? Cough or cold No symptoms in the past two weeks? Does patient have No any memory problems? Does patient have None history of Mobility device(s) Cane,Other used Comment Will bring walker. Has patient fallen No within the past year ? Does patient have a No neurostimulator or pain stimulator? Does patient have Yes chronic pain? If yes, where? Low back pain. Does patient have Yes history of GERD? Special dietary No needs or difficulty swallowing? Does patient have No history of kidney/ liver problems/ disease? Does patient have No Diabetes? GLP-1? Yes If yes, daily or Weekly. weekly? Date of last dose 07/09/25 prior to surgery Does patient have Yes history of thyroid problems? Is patient ? No Is patient No ? Does patient have No history of cancer? Alcohol intake 0 drinks per day Smoking status Never smoker Marijuana product No use? Other substance use None Does patient have Yes: Hallucinations - ? d/t morphine and/or demerol. history of anesthesia reactions ? Family history of No anesthesia reactions ? Patient/family No member history of Malignant Hyperthermia? Does patient have No history of a blood transfusion reaction ? Anesthesia Review No Requested Spiritual beliefs None. that may affect healthcare choices? Cultural practices None. that may affect healthcare choices? Patient has Advanced Yes Directive and/or Power of Barnworker Groom? Does patient have Yes assistance after surgery? Who is driving Saturnino Franco - patient home after surgery? Phone number [phone] Relationship to Spouse patient PAC Instructions Assistance for 24 hours post-op,Do not shave/clip surgical site,Durable medical equipment,Medications to take/avoid,Nasal antibiotic,No ETOH/petroleum product on skin DOS,NPO,Post-op transportation,Pre-surgical wash,Sensory aids,Sturdy shoes/comfortable clothes,Do not bring valuables and remove jewelry
--- NOTE | 2025-07-24 19:23 | PC.NURSE ---
The pt reports that the tramadol does not seem to be effective for the pain control and that the oxycodone works much better for her. Dr. Hairston is aware that the tramadol is ineffective.
[2025-07-24] MEDS: ATORVASTATIN 20 MG TABLET PO (20:46)
[2025-07-24] MEDS: DOCUSATE 100 MG CAPSULE PO (20:46)
[2025-07-24] MEDS: SENNOSIDES 8.6 MG TABLET 17.2 MG PO (20:47)
[2025-07-25] MEDS: IBUPROFEN 600 MG TABLET PO ×3 (00:10→12:16)
[2025-07-25 03:43] VITALS: BP 95/42; PULSE 82; RESP 16; TEMP 36.4; O2SAT 92
[2025-07-25] MEDS: ACETAMINOPHEN 325 MG TABLET 650 MG PO ×2 (03:46→08:58)
[2025-07-25 08:00] VITALS: BP 102/46; PULSE 70; RESP 16; TEMP 36.2; O2SAT 98
--- NOTE | 2025-07-25 08:21 | PT.IIE ---
Current Diagnoses Unilateral primary osteoarthritis, right hip (07/24/25) Surgery Performed Operation Date: 07/23/25 14:45 Actual Procedures p Total Hip Arthroplasty/Anterior Approach(Right) - Holden Hairston MD Surgical History (Last Updated 07/09/25 @ 14:38 by Liz Campos RN) Anesthesia History of cholecystectomy (~02/2007) History of surgical removal of pilonidal cyst (~03/1980) Medical History (Last Updated 12/12/24 @ 12:20 by Holden Hairston MD) Anemia Anxiety Brain damage (~2006) Depression (~1950) Dorsalgia Environmental allergies Gastric polyps GERD (gastroesophageal reflux disease) Granuloma annulare (~2017) Hemorrhoid Hiatal hernia History of urinary incontinence (~2005) Hypothyroidism (~2000) Low back pain Lumbar radiculopathy Lumbar spondylosis Migraines Osteoarthritis of hands, bilateral (~2009) Osteoporosis (~2015) Painful menstrual periods Pelvic rash (~03/2022) Primary osteoarthritis of right hip Psoriasis (~1974) PTSD (post-traumatic stress disorder) (~2006) Right knee pain Right leg swelling Rosacea (~2010) Scoliosis Thyroid nodule Vertigo Wears glasses Physical Therapy Inpatient Evaluation/Re-Eval M1 PT IP Prior Functional Status Start: 07/25/25 09:22 Freq: Status: Active Protocol: Document 07/25/25 09:23 NW (Rec: 07/25/25 09:32 NW [id number]) Medical Review Prior Functional Status Medical History Yes Reviewed Communication I Mobility and Gait I Activities of Daily I Living and IADL's Prior Functional Ambulated within the community no AD. Level (Other details ) Social History Household Members spouse,significant other Living Arrangements House Number of Floors ( One Floor Floors) Number of Stairs To 0 Enter/Railing? Home Environment High Toilet,Walk in Shower Home Equipment Grab Bars Near Toilet,Grab Bars In Shower Additional Social Spouse present to assist. History Comment M2 PT-IP Current Condition Start: 07/25/25 09:22 Freq: Status: Active Protocol: Document 07/25/25 09:23 NW (Rec: 07/25/25 09:32 NW [id number]) Physical Therapy Current Condition Current Condition Evaluation Date 07/25/25 Treatment Diagnosis R ELVIS Onset Date 07/23/25 M3 PT-IP Subjective Start: 07/25/25 09:22 Freq: Status: Active Protocol: Document 07/25/25 09:23 NW (Rec: 07/25/25 09:32 NW [id number]) Subjective Physical Therapy Visit Type Type Initial Evaluation Visit Start Time 07:47 Visit Stop Time 08:21 Number of TELETYPEWRITER OPERATOR Visits 0 Physical Therapy Visit Comments Patient Comments Pt feels better than yesterday. She is no longer having instances of light headedness. Patient Goals To go home. Therapy Pain Assessment Location right hip Intensity 6 Scale Used Numeric (0 - 10) Description Aching Pain Management Modification of Treatment,Timing of Activity with Techniques Medications M4 PT-IP Mobility and Gait Start: 07/25/25 09:22 Freq: Status: Active Protocol: Document 07/25/25 09:23 NW (Rec: 07/25/25 09:32 NW [id number]) PT-Bed Mobility Assessment Rolling Type of Rolling Roll to Right Level of Assist Independent Supine to Sit Supine to Sit Standby Assistance Scooting Scooting to Edge of Standby Assistance Bed PT-Transfer Assessment Sit to and From Stand Sit to and from Standby Assistance Stand Equipment Transfer Assistive Gait Belt,Front Wheeled Walker Device Transfers Transfer Destination Chair Transfer Technique Stand Step Pivot Transfer Ability Level of Assist Standby Assistance Comments Mobility Comments cues required for UE placement and anterior weight shift with LE placed under body. Gait Assessment Gait Gait Assistance Standby Assistance Required: Distance (Feet) 23 Able to Maintain Yes Weight Bearing Status During Gait Assistive Devices Assistive Device Gait Belt,Front Wheeled Walker Gait Deviations General Gait Pattern Antalgic,Step-to Gait Factors Limiting Gait Function Factors Limiting Pain Gait Function Comments Gait Comments cues given to decrease depth in FWW. Adequate velocity and power production with UE use. Stair Climbing Assessment Comments Stair Climbing not applicable Comments PT-Balance Assessment Sitting Balance and Reactions Static Sitting Normal Balance Ability Dynamic Sitting Good Balance Ability Standing Balance and Reactions Static Standing Good Balance Ability Dynamic Standing Fair Balance Ability Device Used FWW Functional Assessments Other Functional Tests STS from different height surfaces. Educated about Performed strategies to assist with completion with decreasing WBing through RLE secondary to pain. M5 PT-IP Objective Assessments Start: 07/25/25 09:22 Freq: Status: Active Protocol: Document 07/25/25 09:23 NW (Rec: 07/25/25 09:32 NW [id number]) Orientation Orientation/Cognition Level of Alertness Alert Orientation Name,Age,Birthday,Month,Date,Year,Day of Week,Place, Situation Safety Awareness Understands Safety Issues Gross Range of Motion Upper Extremity ROM Assessment Within Functional Limits Lower Extremity ROM Assessment Right Impaired Impairments DNT hip Strength Upper Extremity Strength Assessment Within Functional Limits Lower Extremity Strength Assessment Right Impaired Hip DNt flexion Knee 3/5 Ankle WFL Comments Strength Comments Adequate power production with STS with increased Wbing on LLE. Sensation Assessment Sensation Gross Sensation WNL Muscle Tone Muscle Tone WNL Yes M6 PT-IP Treatment Start: 07/25/25 09:22 Freq: Status: Active Protocol: Document 07/25/25 09:23 NW (Rec: 07/25/25 09:32 NW [id number]) Physical Therapy Treatment Exercises Exercises Ankle Pumps,Gluteal Sets,Quad Sets,Heel Slides Education Education Provided Precautions,Post-Op Packet,Safety Other Treatments Other Treatment Education of sizing of FWW and car transfer techniques. Performed M7 PT-IP Assessment and Plan Start: 07/25/25 09:22 Freq: Status: Active Protocol: Document 07/25/25 09:23 NW (Rec: 07/25/25 09:32 NW [id number]) PT Summary Assessment and Plan Potential Rehabilitation Excellent Potential Status of Condition Stable at Evaluation Summary Impairments Pain,Strength,Balance,Transfers,Gait,Activity Tolerance Progress Towards Progressing Toward Goals Goals Assessment Summary Jodi is a 75 yr old female admitted after R ELVIS on 07/23/25. Pt at baseline is independent with all functional mobility within the home and community. Tried to see pt on 07/24/25, but was unable secondary to orthostatic hypotension and was symptomatic. Today pt has WFL BP with no symptoms. Pt is independent with bed mobility, SBA for transfers and short distance gait with FWW. Pt has typical gait abnormalities secondary to pain. Practiced getting in and out of a lower chair to mimic car transfer with good performance with increased repetitions. Pt has OP PT set up upon discharge once medically stable. Goals Transfer Goal Independent Gait Goal Independent Gait Distance 50 Days to Meet Goals 1 Frequency of Treatment Frequency Of Once a Day Treatment Treatment Plan Physical Therapy Transfer Training,Gait Training,Therapeutic Exercise, Treatment Plan Balance Retraining,Post Op Education,Discharge Planning ,Neuromuscular Re-ed Other progress gait distance Recommendations and Next Treatment Focus Precautions Anterior Hip No Hip Extension,No Hip External Rotation Precautions Other Precautions falls risk Weight Bearing Status Weight Bearing Weight Bear as Tolerated Status Recommendations To Nursing Amount of Assist Standby Assistance,1 Person Assist Needed Discharge Recommendations PT Discharge Home with Assistance,Outpatient PT Recommendations Transportation Needs Private Vehicle at Discharge - PT assist 1
[2025-07-25] MEDS: ASPIRIN EC 81 MG TABLET PO (08:53)
[2025-07-25] MEDS: CHOLECALCIFEROL (VITAMIN D3) 1,000 UNIT TABLET 2000 UNIT PO (08:53)
[2025-07-25] MEDS: MAGNESIUM HYDROXIDE 30 ML UDC PO (08:54)
[2025-07-25] MEDS: DOCUSATE 100 MG CAPSULE PO (08:54)
[2025-07-25] MEDS: CALCIUM CARBONATE 500 MG TAB PO (08:58)
--- NOTE | 2025-07-25 09:17 | PC.NURSE ---
Pt in good spirits this morning after working with PT and is hopeful to discharge home today. BP is improved and closer to pt's baseline, no sx of hypotension. Pain is much better and a 4/10 this morning after being up with PT. is at the bedside and supportive and helpful to pt. Pt is eating and drinking, passing gas, no BM yet. Agreed to take bowel meds this AM to help prevent constipation r/t opioid use. Will continue to monitor.
--- NOTE | 2025-07-25 09:23 | PC.NURSE ---
Patient is alert and oriented x3, r.hip anterior aquacel dressing is cdi. Patient as worked with physical therapy and been cleared to go home. Awaiting on discharge orders from Ortho. She is ambulating with walker appropriately.
--- NOTE | 2025-07-25 10:44 | P.DS_ITS ---
History of Present Illness History of Present Illness Date Patient Seen: 07/25/25 Time Patient Seen: 10:45 Chief complaint: Right Total Hip Arthroplasty/Anterior Approach Narrative: HPI: Jodi is a very pleasant 75 year old female who is seen today on postoperative day #2 s/p right anterior total hip arthroplasty by Dr. Hairston. She had some postoperative hypotension yesterday which limited her ability to go home as she had planned. Today she is feeling much better, she tells me she is ready to d/c to home today w/ her . She worked w/ PT this AM and reports it went well, no longer having any dizziness or lightheadedness. She is urinating well w/o issue. She has post-op pain medication at home already. She tells me at rest her pain is 1/10 and 3/10 w/ WB/activity, well controlled w/ current pain regiment. Denies fever, chills, chest pain, SOB, nausea, vomiting. Discharge Providers Provider Date of admission: 07/24/25 15:23 Discharge Date: 07/25/25 Primary care physician: Annabelle Mancini MD Consults: 07/23/25 18:33 Consult to Discharge Planning Routine Comment: Consult to Physical Therapy Evaluate & Treat Comment: Physician Instructions: WBAT Discharge provider: Kateryna Balderrama PA-C Summary Hospital Course Hospital Course: Hospital course complicated by symptomatic post-operative hypotension on POD#1, now resolved Exam Vital Signs (past 8 hours): - 07/25/25 03:43 07/25/25 08:00 Temperature 97.5 F L 97.1 F L Pulse Rate 82 70 Respiratory Rate 16 16 Blood Pressure 95/42 L 102/46 L Pulse Oximetry 92 98 Oxygen Flow Rate 0 0 Oxygen Delivery Method Room Air Oxygen Flow Rate 0 Narrative Exam Narrative: Patient lying comfortably in bed during our interview today. No acute distress. AOx3. Grossly normal alignment of the RLE with minimal swelling throughout. 5/5 strength with DF, PF, EHL bilaterally. Gross sensation intact throughout bilateral lower extremities. Calves soft and non-tender bilaterally. SCDs are on and functioning. Brisk capillary refill, pulses intact. Post-surgical Aquacel dressing clean, dry and intact over the right hip without drainainge. Const General: cooperative and comfortable Objective Labs 07/23/25 22:21 PFSH Medical History (Updated 06/19/25 @ 14:29 by Annabelle Mancini MD) Primary osteoarthritis of right hip Right leg swelling Thyroid nodule Gastric polyps Hiatal hernia Low back pain Wears glasses Pelvic rash (~03/2022) Granuloma annulare (~2017) Rosacea (~2010) Psoriasis (~1974) Osteoarthritis of hands, bilateral (~2009) Environmental allergies PTSD (post-traumatic stress disorder) (~2006) Anxiety Brain damage (~2006) Anemia Vertigo Painful menstrual periods History of urinary incontinence (~2005) Hemorrhoid GERD (gastroesophageal reflux disease) Migraines Hypothyroidism (~2000) Osteoporosis (~2015) Depression (~1950) Right knee pain Scoliosis Dorsalgia Lumbar spondylosis Lumbar radiculopathy Surgical History (Updated 07/09/25 @ 14:38 by Liz Campos RN) Anesthesia History of cholecystectomy (~02/2007) History of surgical removal of pilonidal cyst (~03/1980) Family History Father History of heart attack Uncle No problems noted. Aunt History of colostomy Mother COPD (chronic obstructive pulmonary disease) Sister History of hysterectomy Grandmother Cancer Social History household members: spouse and significant other Smoking Status: Never smoker alcohol intake: never substance use type: other Discharge Assessment & Plan Assessment and Plan Assessment: 75 year old female with a past medical history of psoriasis, anemia, GERD, migraines and anxiety is post operative day 2 from a right total hip arthroplasty by Dr. Hairston at [facility] on 07/23/2025. The patient is recovering well with appropriate pain control on oral analgesics and stable vital signs. The patient is comfortable with discharge home today. Plan: - Weight bearing as tolerated to operative extremity with front wheeled walker - Hip precautions: none - DVT prophylaxis: 81 mg of aspirin by mouth twice daily - Pain control: multimodal analgesia with ice to surgical site for additional pain and swelling releif. - Bowel regimen: docusate sodium twice daily for constipation - Physical therapy: 2x a week for 6 weeks outpatient. - Follow up: 2 week follow up at [facility] for wound check and X-Rays - Discharge medications: none. Post operative medications were prescribed prior to surgery - Disposition: home today All patient questions were answered, and they verbalized agreement with the above plan. Call [facility] or electronic engineering technician provider with any questions or concerns. Discharge Plan Discharge Plan Patient Disposition: Home Provider Discharge Comment: SURGICAL PROCEDURE: Right Total Hip Arthroplasty SURGEON: Dr. Hairston at [facility] DATE: 07/23/25 ACTIVITY INSTRUCTIONS - You are weight bearing as tolerated to the right lower extremity with a front wheeled walker at all times. We encourage active movement of the toes and ankle every hour while awake to prevent stiffness. - You have no hip precautions - Limit your steps to no more than 1000 steps per day for the first week after surgery to limit swelling. - Do not drive while taking narcotic medications and recovering from your surgery. DRESSING CARE - You have an aquacell dressing on top of your incision. This is a waterproof dressing and so you may shower with the dressing so long as the dressing remains clean and dry to the surgical site. Leave the dressing in place until your follow up in the orthopedic clinic. If the dressing becomes saturated or is disrupted call our office for further guidance. POST-OPERATIVE INSTRUCTIONS - If you notice fever, chills, night sweats, redness, excessive drainage or bleeding, a sharp increase in pain that persists after taking pain medication, pain in your calf muscles, chest pain or trouble breathing please unwrap the dressing and investigate. Then call the office with findings for further guidance. If it is after regular clinic hours, please seek care in the emergency department. - In the rare case of any severe chest pain and trouble breathing, seek immediate care, do not delay for a call to the clinic. - Use ice to the affected extremity for 15-30 minutes increments as much as possible. Use your ice machine as discussed in your pre-operative visit. - Keep extremity elevated to the level of the heart to reduce swelling. You can use ice on top of the dressing to reduce pain and swelling of the extremity. - You should consume a low sodium diet after surgery to limit swelling. You can gradually resume your normal diet if you have no nausea or vomiting - Physical therapy should begin about 7-10 days after surgery. Your first evaluation should already be scheduled. Call our office if you cannot schedule your therapy in the expected time frame. - Your follow up is already scheduled for 2 weeks after your surgery at the Orthopedic clinic. - You should have no dental procedures for 6 months following your total joint replacement. - Please refer to Dr. Hairston?s educational videos on YouTube for a reference on your post operative care. [email or web address] - Call [facility] at [phone] with any questions or concerns. MEDICATIONS - Please refer to the ?Orthopedic Medication Instructions? sheet provided at your pre-operative visit. Written instructions are provided below as a reminder. - Take two pills of 500 mg Tylenol (acetaminophen) every 8 hours regardless of pain in a scheduled manner. Do not exceed 3000 mg of Tylenol (from ALL sources, including over the counter combination products) in a 24-hour period due to risk of liver injury. - Take 600 mg of ibuprofen (Advil) by mouth every 6-8 hours for pain control. This is NSAID (anti-inflammatory) medication to reduce swelling and pain. - Take one pill of 5 mg oxycodone by mouth every 4-6 hours as needed for break through pain after taking your regular Tylenol and anti-inflammatory. Oxycodone and Tramadol are opioids, which means they are similar to morphine, heroin or fentanyl. Our goal is for you to take as little of this as possible because the side effects from it can be very severe. If you are able to get through your recovery process taking 10 pills or less please share your story with other patients by logging onto [email or web address] and sharing what strategies you used to avoid these dangerous medications. You can also read other patients? stories on that website to get strategies that go above and beyond what we have discussed to help you manage this pain while avoiding opioids. - Take 200 mg of Colace by mouth every 12 hours for constipation. Narcotic medications such as oxycodone and tramadol as well as anesthesia may increase your risk of constipation after surgery. - Take 4 mg of Zofran by mouth every 6 hours as needed for uncontrolled nausea or vomiting. If you have persistent nausea and vomiting call our office or seek care in the emergency department. - Take one pill of 81 mg of aspirin two times daily 12 hours apart for 6 weeks for blood clot prevention. Take this medication regardless of pain. - Take a proton pump inhibitor such as Pantoprazole or Omeprazole if you have a history of acid reflux or are noticing stomach irritation. NSAIDs and aspirin can both cause stomach irritation and that medication can help avoid stomach issues. - If you stopped taking a ?biologic? medication that you normally take for an issue such as rheumatoid arthritis or psoriasis prior to surgery, do not restart it until we have seen you back in clinic and confirmed that your wound is healed. - Resume all of your normal home medications tomorrow morning unless specified otherwise by your surgeon. Nursing Discharge Comment: You were given 975mg of Tylenol at 1:18pm. You can have another dose of Tylenol at 9:18pm. Do not exceed 3000mg in a 24 hour period. Discharge orders & Medications Prescriptions: New ondansetron 4 mg tablet,disintegrating 4 mg PO Q8H PRN (Reason: nausea and vomiting) Qty: 10 0RF Continued cholecalciferol (vitamin D3) 50 mcg (2,000 unit) capsule 50 mcg PO DAILY magnesium hydroxide 400 mg/5 mL suspension 800 mg PO DAILY calcium gluconate 50 mg calcium tablet 100 mg PO DAILY tirzepatide (weight loss) 2.5 mg/0.5 mL solution 2.5 mg SUBCUT QWEEK 28 Days Qty: 2 3RF lorazepam 0.5 mg tablet 0.5 mg PO DAILY PRN (Reason: anxiety) Qty: 1 0RF (DME) Disabled Parking Permit See Rx Instructions .ROUTE .MEDSUPPLY Qty: 1 0RF Rx Instructions: I find this patient to be medically disabled and qualified for Disabled Parking as indicated and signed on the accompanying Disabled Parking Application for Individuals. melatonin 5 mg capsule PO docusate sodium [Colace] 100 mg capsule 100 mg PO BID PRN (Reason: constipation) Qty: 60 0RF oxycodone 5 mg tablet 5 mg PO Q6H PRN (Reason: pain) Qty: 25 0RF raloxifene 60 mg tablet 60 mg PO DAILY atorvastatin 20 mg tablet 20 mg PO DAILY Changed aspirin [Adult Low Dose Aspirin] 81 mg tablet,delayed release (DR/EC) 81 mg PO BID Qty: 90 0RF Follow up/Referrals: Annabelle Mancini MD [Primary Care Provider, Family Practice] Visit Report/Discharge Packet Instructions: DI for Hip Replacement Stand Alone Forms: [employer], Patient Portal/API, Stroke Signs & Symptoms, Influenza Vaccine Info, Notice of Privacy Practices, Inpatient vs Outpatient, Pneumococcal Vaccine Info, Pt. Rights & Responsibilities, Surgery Discharge Discharge Data Primary Care Provider: Annabelle Mancini Quality VTE Deep Vein Thrombosis/Pulmonary Embolism Present on Admission: No IH PROFEE Charge Codes Discharge inpatient/observation: [id number]
--- NOTE | 2025-07-25 12:09 | CM.DPNOTE ---
DCP Continued: Reviewed EMR and team rounds for pt?s medical status. Per Ortho, pt cleared for discharge home today. Will follow up in clinic outpatient and start outpatient PT when cleared. No discharge needs identified at this time. Plan: Anticipating discharge home with spouse to transport on 07/25 or when medically cleared. CM Team will continue to follow for coordination of discharge plans. CUONG GarciaSW
== END 2025-07-25 12:24 | disposition home or self-care (01) | DRG 470 ==
LOC: OR 07-25 07:51 → AC 07-25 07:51
PROVIDERS: Physician Assistant Surgical; Admitting Provider Orthopaedic Surgery Adult Reconstructive Orthopaedic Surgery; PCP Student in an Organized Health Care Education/Training Program; Referring Provider Orthopaedic Surgery Adult Reconstructive Orthopaedic Surgery; Visit Provider Orthopaedic Surgery Adult Reconstructive Orthopaedic Surgery
PROC: 0SR90J9 Replacement of Right Hip Joint with Synthetic Substitute, Cemented, Open Approach (ICD-10-PCS; CPT 27130; principal; 2025-07-23 14:45)
DX: M16.11 Unilateral primary osteoarthritis, right hip (principal); I95.81 Postprocedural hypotension; F41.9 Anxiety disorder, unspecified
CPT/HCPCS: 36415; 73502; 76000; 85014; 85018; 97161; 97530; C1776; C1713; J0165; J0689; J1100; J1885; J2250; J2405; J2704; J3010; J3410; J7120; P9045